=== PATIENT | male | born 1945 | race Caucasian/White ===

== ENCOUNTER → 2022-05-09 | Outpatient (CLI) | payer MEDICARE ==
--- NOTE | 2022-05-09 10:06 | CT ---
EXAMINATION TYPE: CT brain wo con DATE OF EXAM: 05/09/2022 COMPARISON: None HISTORY: Unsteady gait. CT DLP: 1108.4 mGycm Automated exposure control for dose reduction was used. FINDINGS: There is extensive soft tissue within the sphenoid sinus likely basis of chronic inflammatory changes . Mild generalized degenerative changes of the low attenuation in the white matter. No midline shift or mass effect. No acute hemorrhage. Calvarium is intact. Orbits are symmetric. Nasal septal deviation noted. Mastoid air cells clear. Catcher Filter Tip niocervical junction is maintained. Fluid-filled attenuation in the anterior right temporal fossa trinidad suring 2 x 1.2 cm compatible small arachnoid cyst. IMPRESSION: 1. Degenerative and nonspecific white matter changes most typical remote ischemia. 2. Extensive soft tissue in the sphenoid sinus extending toward the sella turcica most likely is post inflammatory and related to severe sinusitis. Recommend follow-up MRI for further evaluation as there may be a subtle defect involving the floor of the sella. 3. Fluid attenuation anterior right temporal fossa measuring 2 x 1.2 cm compatible small arachnoid cy st..
== END | disposition home or self-care (01) ==
LOC: RADCTMAIN 09:19
PROVIDERS: ATTEND Psychiatry & Neurology Neurology
DX: R90.82 White matter disease, unspecified (principal); R26.89 Other abnormalities of gait and mobility
CPT/HCPCS: 70450

== ENCOUNTER → 2022-10-29 | Outpatient (CLI) | payer MEDICARE ==
[2022-10-29 12:25] LABS: African American GFR (CKD) >90 (>60 ml/min/1.73 sqM); Blood Urea Nitrogen 17 mg/dL (9-20); Non-African American GFR(CKD) 85 (>60 ml/min/1.73 sqM)
--- NOTE | 2022-10-29 18:01 | CT ---
EXAMINATION TYPE: CT abdomen pelvis w con DATE OF EXAM: 10/29/2022 COMPARISON: None INDICATION: Constipation x3 months DLP: 891 mGycm, Automated exposure control for dose reduction was used. CONTRAST: 100 mL of Isovue 300. Study performed with Oral Contrast TECHNIQUE: Axial images were obtained from above the diaphragm to the pubic rami in the axial plane a t 5 mm thick sections. Reconstructed images are reviewed on the computer in the coronal plane. FINDINGS: Limited CT sections are obtained the lung bases. There is small hiatal hernia present.. CT ABDOMEN: Liver: r there is an ill-defined hypodensity within the lateral right lower lobe liver measuring 1.3 cm. This appears to be partially filled during the delayed images. Hemangioma is favored. This howeve r is not diagnostic of a hemangioma. Correlation with ultrasound may be useful. Spleen: Normal Pancreas: Normal Adrenal glands: The adrenal glands are normal. Gallbladder: Surgically absent Kidneys: No masses are evident. No hydronephrosis is present. There is a 2.5 cm cyst upper pole rig ht kidney. Peripelvic cyst may be present on the left kidney measuring 3.3 cm. Aorta: Vascular calcification is within the aorta. Inferior vena cava: Normal. CT PELVIS: Loops of bowel within the abdomen and pelvis are normal. There are loops of bowel which are incom pletely distended or lack oral contrast limiting their evaluation. Small fecal boluses of the rectum. Scattered diverticuli within the sigmoid colon. Appendix: Normal as visualized. Urinary bladder: Decompressed. No obvious abnormality. Genitourinary structures: Prostate is prominent. Calcification is present. Osseous structures: No suspicious lytic or sclerotic lesions. Scoliosis present. Degenerative disc ch anges are within the lumbar spine. IMPRESSIONS: 1. Small hiatal hernia. 2. Renal cysts. 3. Scattered fecal debris. No suspicious changes suggest obstruction is evident. Significant fecal re tention is not evident.
== END | disposition home or self-care (01) ==
LOC: RADCTMAIN 11:18
PROVIDERS: ATTEND Family Medicine
DX: N28.1 Cyst of kidney, acquired (principal); K44.9 Diaphragmatic hernia without obstruction or gangrene; R63.4 Abnormal weight loss; R19.4 Change in bowel habit
CPT/HCPCS: 82565; 84520; 74177; 36415; Q9967

== ENCOUNTER 2023-06-10 14:22 | Observation (INO) | payer MEDICARE ==
[2023-06-10] MEDS ORDERED: HYDROmorphone 0.5 MG/0.5 ML SYRINGE IVP STA (14:50)
[2023-06-10] MEDS ORDERED: ONDANSETRON 4 MG/2 ML VIAL IVP STA (14:50)
--- NOTE | 2023-06-10 14:54 | ED ---
Fall HPI - General Chief Complaint: Fall Stated Complaint: shoulder pain Time Seen by Provider: 06/10/23 14:39 Source: patient, EMS, RN notes reviewed Mode of arrival: EMS - History of Present Illness Initial Comments: Patient is an 78-year-old male presented ER via EMS with chief complaint of left shoulder pain. Patient was seen at [facility] on [id number] for a fall. Patient states he was stepping up onto a curb and tripped landing on his left shoulder and hitting his head. CT at that time was negative. Left shoulder x- ray showed a proximal humerus fracture. Patient is scheduled to see Dr. Nogueira tomorrow. Patient is presenting to the ER due to pain. Patient received 15 of IV Toradol and route. Patient states his pain is still at a 9 out of 10. Patient reports that his hand is numb. Denies any elbow pain. Denies any blood thinner use, headache, double blurry vision, nausea vomiting. - Related Data Home Medications Medication Instructions Recorded Confirmed ALPRAZolam [Xanax] 0.25 mg PO HS 06/10/23 06/10/23 Atorvastatin [Lipitor] 10 mg PO DAILY 06/10/23 06/10/23 Baclofen 10 mg PO HS 06/10/23 06/10/23 Benazepril/Hydrochlorothiazide 1 tab PO DAILY 06/10/23 06/10/23 [Benazepril-Hctz 20-25 mg Tab] Escitalopram [Lexapro] 10 mg PO DAILY 06/10/23 06/10/23 Esomeprazole Magnesium [NexIUM 20 mg PO DAILY 06/10/23 06/10/23 24Hr] HYDROcodone/APAP 5-325MG [Sturgeon 1 tab PO Q6H PRN 06/10/23 06/10/23 5-325] Levothyroxine Sodium [Synthroid] 125 mcg PO DAILY 06/10/23 06/10/23 Magnesium Oxide [Magox 400] 400 mg PO DAILY 06/10/23 06/10/23 Meloxicam [Mobic] 7.5 mg PO DAILY 06/10/23 06/10/23 Multivitamins, Thera [Multivitamin 1 tab PO DAILY 06/10/23 06/10/23 (formulary)] Pioglitazone [Actos] 15 mg PO DAILY 06/10/23 06/10/23 atenoloL [Tenormin] 25 mg PO DAILY 06/10/23 06/10/23 glipiZIDE [glipiZIDE ER] 2.5 mg PO DAILY 06/10/23 06/10/23 Allergies Allergy/AdvReac Type Severity Reaction Status Date / Time No Known Allergies Allergy Verified 06/10/23 17:01 Review of Systems ROS Statement: Those systems with pertinent positive or pertinent negative responses have been documented in the HPI. ROS Other: All systems not noted in ROS Statement are negative. Past Medical History Past Medical History: Hyperlipidemia, Hypertension, Thyroid Disorder History of Any Multi-Drug Resistant Organisms: None Reported Past Surgical History: Cholecystectomy, Orthopedic Surgery Additional Past Surgical History / Comment(s): Thyroid removed Past Psychological History: No Psychological Hx Reported Smoking Status: Former smoker Past Alcohol Use History: Rare Past Drug Use History: None Reported General Exam Limitations: no limitations General appearance: alert, in no apparent distress Head exam: Present: atraumatic, normocephalic, normal inspection Eye exam: Present: normal appearance, PERRL, EOMI. Absent: scleral icterus, conjunctival injection, periorbital swelling Pupils: Present: normal accommodation Neck exam: Present: normal inspection. Absent: tenderness, meningismus, lymphadenopathy Respiratory exam: Present: normal lung sounds bilaterally. Absent: respiratory distress, wheezes, rales, rhonchi, stridor Cardiovascular Exam: Present: regular rate, normal rhythm, normal heart sounds. Absent: systolic murmur, diastolic murmur, rubs, gallop, clicks Extremities exam: Present: other (left shoudler is in sling. 2+ left radial pulse. Decreased flooring professional strength on left compared to right. There is tenderness to humeral head. yellow discoloration noted in left armpit) Neurological exam: Present: alert, oriented X3, CN II-XII intact Psychiatric exam: Present: normal affect, normal mood Skin exam: Present: warm, dry, intact, normal color. Absent: rash Course Vital Signs 06/10/23 06/10/23 14:34 17:10 Temperature 98.0 F Pulse Rate 58 L 56 L Respiratory 18 18 Rate Blood Pressure 155/85 131/80 O2 Sat by Pulse 99 98 Oximetry Medical Decision Making - Medical Decision Making Was pt. sent in by a medical professional or institution (, PA, SENIOR NUCLEAR MEDICINE TECHNOLOGIST, urgent care, hospital, or retirement...) When possible be specific @ -No Did you speak to anyone other than the patient for history (EMS, parent, family, police, friend...)? What history was obtained from this source @ -Yes, Did you review nursing and triage notes (agree or disagree)? Why? @ -I reviewed and agree with nursing and triage notes Were old charts reviewed (outside hosp., previous admission, EMS record, old EKG, old radiological studies, urgent care reports/EKG's, retirement records)? Report findings @ -Yes, I reviewed charts for 06/08/23 at [facility]. Which showed negative CT brain/cspine for acute intracranial process. Left shoulder xray showed a fracture. Differential Diagnosis (chest pain, altered mental status, abdominal pain women, abdominal pain men, vaginal bleeding, weakness, fever, dyspnea, syncope, headache, dizziness, GI bleed, back pain, seizure, CVA, palpatations, mental health, musculoskeletal)? @ -Differential Musculoskeletal: Muscular strain, contusion, ligament sprain, fracture, arthritis, septic arthritis, bursitis, cellulitis, muscle spasm, nerve compression, DVT, arterial occlusion, herpes zoster, electrolyte abnormality, tumor.... This is not meant to be in all inclusive list EKG interpreted by me (3pts min.). @ -None X-rays interpreted by me (1pt min.). @ -X-ray of left shoulder a 2 part fracture proximal left humerus with disp laced surgical neck component. Chest x-ray was also completed which shows COPD and possible pulmonary nodule in the right midlung. CT interpreted by me (1pt min.). @ -None done U/S interpreted by me (1pt. min.). @ -None done What testing was considered but not performed or refused? (CT, X-rays, U/S, lab s)? Why? @ -None What meds were considered but not given or refused? Why? @ -None Did you discuss the management of the patient with other professionals (professionals i.e. , PA, SENIOR NUCLEAR MEDICINE TECHNOLOGIST, lab, RT, psych nurse, high school social science teacher, bog cutter, teacher, security control room officer, case fitter)? Give summary @ -Yes, I spoke with Giorgio from . He spoke with Dr. Nogueira and advised admission for pain control and orthopedic consult tomorrow. I also spoke with Dr. Bonner for medical admission, who accepted patient. Was smoking cessation discussed for >3mins.? @ -No Was critical care preformed (if so, how long)? @ -No Were there social determinants of health that impacted care today? How? (Homelessness, low income, unemployed, alcoholism, drug addiction, transportation, low edu. Level, literacy, decrease access to med. care, longterm, r ehab)? @ -No Was there de-escalation of care discussed even if they declined (Discuss DNR or withdrawal of care, Hospice)? DNR status @ -No What co-morbidities impacted this encounter? (DM, HTN, Smoking, COPD, CAD, Cancer, CVA, ARF, Chemo, Hep., AIDS, mental health diagnosis, sleep apnea, morbid obesity)? @ -Hypertension, hyperlipidemia, thyroid disorder Was patient admitted / discharged? Hospital course, mention meds given and route, prescriptions, significant lab abnormalities, going to OR and other pertinent info. @ -Admitted. Patient is an 78-year-old male presenting to the ER with a chief complaint of left shoulder pain after fall. Patient was previously seen at [facility] after fall on 06/08/23. CT brain was negative at that time. X- ray of left shoulder showed a humeral neck fracture. He was discharged for orthopedic follow-up. Patient presented to the ER today from PCP with complaint of uncontrolled pain. Upon examination, patient's vital signs are stable. Physical exam was significant for a noticeable deformity to shoulder with bruising present patient was also wearing a sling. Patient was neurovascularly intact. Patient was reporting his pain was 9 out of 10. Patient received IV 0.5 Dilaudid with improvement of pain. I spoke with Giorgio from who advised admission for pain control and with an orthopedic consult to Dr. Nogueira tomorrow. X-ray of left shoulder a 2 part fracture proximal left humerus with displaced surgical neck component. Chest x-ray was also completed which shows COPD and possible pulmonary nodule in the right midlung. Labs obtained in the ER were significant for Hgb 12.0 and Na of 131. Patient was started on maintenance fluids. I spoke with Dr. Bonner from [facility] who accepted medical admission. I discussed lab results and imaging with patient. Patient agreed to admission. Patient will be admitted for further care and orthopedic consult. Patient expressed understanding and agreement with care plan. Undiagnosed new problem with uncertain prognosis? @ -No Drug Therapy requiring intensive monitoring for toxicity (Heparin, Nitro, Insulin, Cardizem)? @ -No Were any procedures done? @ -No Diagnosis/symptom? @ -Left humeral neck fracture Acute, or Chronic, or Acute on Chronic? @ -Acute Uncomplicated (without systemic symptoms) or Complicated (systemic symptoms)? @ -Uncomplicated Side effects of treatment? @ -No Exacerbation, Progression, or Severe Exacerbation? @ -No Poses a threat to life or bodily function? How? (Chest pain, [place], [place], pneumonia, PE, COPD, DKA, ARF, appy, cholecystitis, CVA, Diverticulitis, Homicidal, Suicidal, threat to staff... and all critical care pts) @ -No - Lab Data Result diagrams: 06/10/23 16:06 06/10/23 16:06 - Radiology Data Radiology results: report reviewed, image reviewed Disposition Clinical Impression: Humeral fracture Disposition: ADMITTED IP TO [facility] Condition: Stable Time of Disposition: 18:38
--- NOTE | 2023-06-10 15:52 | XR ---
EXAMINATION TYPE: XR chest 1V, XR shoulder limited 2 views LT DATE OF EXAM: 06/10/2023 COMPARISON: NONE HISTORY: 78-year-old male pain after falling FINDINGS: Chest: Heart borderline in size. Mild hyperinflation. Either superimposition shadow or subtle pulmonary nodu le in the right midlung. Otherwise, no consolidation or pleural effusion. Left shoulder: There is a displaced two-part surgical neck fracture of the proximal humerus. There is counter clockw ise and posterior rotation of approximately 45 degrees as well as jai medial displacement and anter ior apex angulation. Moderate degenerative changes AC joint. Somewhat rounded contour of the greater tuberosity may be projectional or could reflect chronic rotator cuff tear. In addition, possible 1.5 cm calcific focus above the greater tuberosity. Prominent overlying soft tissue swelling. IMPRESSION: 1. Chest: COPD. Either summation artifact or a pulmonary nodule in the right midlung. Outpatient CT f ollow-up to further evaluate. No definite acute process. 2. Left shoulder: 2 part fracture proximal left humerus with displaced surgical neck component. Possi ble concurrent calcific tendinitis of the rotator cuff. Note that the greater tuberosity has a somewh at rounded contour. This may be projectional. If it is real, rounding of the contour can be seen with a chronic full-thickness rotator cuff tear.
[2023-06-10 16:21] LABS: HCT 35.5 % (39.0-53.0); MCH 30.9 pg (25.0-35.0); MCHC 33.9 g/dL (31.0-37.0); MCV 91.1 fL (80.0-100.0); Mean Platelet Volume 7.6; Platelet Count 258 k/uL (150-450); RBC 3.89 m/uL (4.30-5.90); RDW 12.5 % (11.5-15.5); WBC 11.1 k/uL (3.8-10.6)
[2023-06-10 16:39] LABS: ALT 17 U/L (4-49); AST 26 U/L (17-59); African American GFR (CKD) >90 (>60 ml/min/1.73 sqM); Albumin 3.1 g/dL (3.5-5.0); Alkaline Phosphatase 52 U/L (38-126); Anion Gap 7 mmol/L; Blood Urea Nitrogen 17 mg/dL (9-20); Calcium 8.4 mg/dL (8.4-10.2); Carbon Dioxide 30 mmol/L (22-30); Chloride 94 mmol/L (98-107); Glucose 113 mg/dL (74-99); Non-African American GFR(CKD) >90 (>60 ml/min/1.73 sqM); Potassium 3.5 mmol/L (3.5-5.1); Sodium 131 mmol/L (137-145); Total Bilirubin 0.6 mg/dL (0.2-1.3); Total Protein 5.5 g/dL (6.3-8.2)
[2023-06-10] MEDS ORDERED: ONDANSETRON 4 MG/2 ML VIAL IVP PRN (17:42)
[2023-06-10] MEDS ORDERED: NALOXONE 0.4 MG/ML 1 ML VIAL IV PRN (17:42)
[2023-06-10] MEDS: SODIUM CHLORIDE 0.9% 1,000 ML IV SCH (18:55)
[2023-06-10] MEDS: HYDROmorphone 2 MG TAB PO PRN ×2 (19:12→23:11)
[2023-06-10] MEDS ORDERED: ALPRAZolam 0.25 MG TAB PO PRN (22:58)
[2023-06-10] MEDS: BACLOFEN 10 MG TAB PO SCH (23:12)
[2023-06-11] MEDS ORDERED: PROMETHAZINE 25 MG TAB PO PRN
[2023-06-11] MEDS: HYDROmorphone 2 MG TAB PO PRN ×2 (04:13→08:23)
[2023-06-11 04:31] LABS: Appearance,Urine Clear (Clear); Color,Urine Yellow; Glucose,Urine (UA) Negative (Negative); PH, Urine 6.5 (5.0-8.0); Protein,Urine Negative (Negative); Specific Gravity,Urine 1.015 (1.001-1.035)
[2023-06-11 04:32] LABS: Bilirubin,Urine Negative (Negative); Blood,Urine Negative (Negative); Ketones,Urine Trace (Negative); Leukocyte Esterase,Urine Negative (Negative); Nitrite,Urine Negative (Negative); Urobilinogen,Urine <2.0 mg/dL (<2.0)
[2023-06-11] MEDS: HYDROcodone/APAP 5-325MG 1 EACH TAB PO PRN ×2 (06:04→12:13)
[2023-06-11] MEDS: LEVOTHYROXINE 125 MCG TAB PO SCH (06:04)
[2023-06-11] MEDS: ESCITALOPRAM 10 MG TAB PO SCH (08:24)
[2023-06-11] MEDS: MULTIVITAMINS, THERA 1 EACH TAB PO SCH (08:24)
[2023-06-11] MEDS: FAMOTIDINE 20 MG/2 ML VIAL IV SCH ×2 (08:24→20:32)
[2023-06-11] MEDS: MAGNESIUM OXIDE 400 MG TAB PO SCH (08:24)
[2023-06-11] MEDS: atenoloL 25 MG TAB PO SCH (08:24)
[2023-06-11] MEDS: SODIUM CHLORIDE 0.9% 1,000 ML IV SCH (08:24)
[2023-06-11] MEDS: ATORVASTATIN 10 MG TAB PO SCH (08:24)
[2023-06-11 08:38] LABS: Blood Urea Nitrogen 14.4 mg/dL (9.0-27.0); Calcium 8.8 mg/dL (8.7-10.3); Carbon Dioxide 26.8 mmol/L (21.6-31.8); Chloride 95 mmol/L (96-109); Glucose 124 mg/dL (70-110); Potassium 3.5 mmol/L (3.5-5.5); Sodium 134 mmol/L (135-145)
[2023-06-11 08:42] LABS: HGB 12.5 g/dL (13.0-17.0); MCH 30.3 pg (27.0-32.0); MCHC 33.8 g/dL (32.0-37.0); MCV 89.6 FL (80.0-97.0); NRBC Per 100 WBC 0 X 10*3/uL (0.00-0.01); Platelet Count 279 X 10*3/uL (140-440); RBC 4.13 X 10*6/uL (4.40-5.60); RDW 13.1 % (11.5-14.5); WBC 9.12 X 10*3/uL (4.50-10.00)
[2023-06-11 08:43] LABS: Basophils # (A) 0.01 X 10*3/uL (0.00-0.10); Basophils % (A) 0.1 %; Eosinophils # (A) 0.11 X 10*3/uL (0.04-0.35); Eosinophils % (A) 1.2 %; Lymphocytes # (A) 1.16 X 10*3/uL (0.90-5.00); Lymphocytes % (A) 12.7 %; Monocytes # (A) 0.67 X 10*3/uL (0.20-1.00); Monocytes % (A) 7.3 %; Neutrophils # (A) 7.14 X 10*3/uL (1.80-7.70); Neutrophils % (A) 78.4 %
[2023-06-11] MEDS: PIOGLITAZONE 15 MG TAB PO SCH (09:11)
[2023-06-11] MEDS: HEPARIN SODIUM,PORCINE 5,000 UNIT/ML 1 ML VIAL SQ SCH ×3 (09:11→20:32)
[2023-06-11] MEDS ORDERED: HYDROcodone/APAP 7.5-325MG 1 EACH TAB PO PRN (12:23)
--- NOTE | 2023-06-11 12:25 | P.CNOR ---
History of Present Illness - [facility] Consult date: 06/11/23 History of present illness: The patient is an 78-year-old male who presented to the emergency department yesterday with uncontrolled pain and debility from a left proximal humerus fracture. He states he fell on 06/07/2023 and what to the emergency department at [facility]. He was seen in our office by Marisol Tarango PA-C and he was referred to Dr. Nogueira for surgical intervention. However, patient had increasing difficulty at home with ambulation and taking care of himself. The patient also has had uncontrolled pain in the left shoulder with Orestes 5. It was decided yesterday that he should come to the hospital for rehabilitation placement. Today, the patient states that his left shoulder pain is severe and his pain increases when he is up ambulating to the bathroom. He is experiencing numbness in the left hand and is unable to move the wrist and fingers well. Review of Systems Constitutional: Denies chills, Denies fatigue, Denies fever Cardiovascular: Denies chest pain, Denies shortness of breath Respiratory: Denies cough Gastrointestinal: Denies diarrhea, Denies nausea, Denies vomiting Musculoskeletal: left: shoulder pain, shoulder stiffness, shoulder swelling Past Medical History Past Medical History: Hyperlipidemia, Hypertension, Thyroid Disorder History of Any Multi-Drug Resistant Organisms: None Reported Past Surgical History: Cholecystectomy, Orthopedic Surgery Additional Past Surgical History / Comment(s): Thyroid removed Past Anesthesia/Blood Transfusion Reactions: No Reported Reaction Past Psychological History: No Psychological Hx Reported Smoking Status: Former smoker Past Alcohol Use History: Rare Past Drug Use History: None Reported - Past Family History Mother Family Medical History: Diabetes Mellitus Father Family Medical History: Myocardial Infarction ([place]) Medications and Allergies Home Medications Medication Instructions Recorded Confirmed Type ALPRAZolam [Xanax] 0.25 mg PO HS 06/10/23 06/10/23 History Atorvastatin [Lipitor] 10 mg PO DAILY 06/10/23 06/10/23 History Baclofen 10 mg PO HS 06/10/23 06/10/23 History Benazepril/Hydrochlorothiazide 1 tab PO DAILY 06/10/23 06/10/23 History [Benazepril-Hctz 20-25 mg Tab] Escitalopram [Lexapro] 10 mg PO DAILY 06/10/23 06/10/23 History Esomeprazole Magnesium [NexIUM 20 mg PO DAILY 06/10/23 06/10/23 History 24Hr] HYDROcodone/APAP 5-325MG [Orestes 1 tab PO Q6H PRN 06/10/23 06/10/23 History 5-325] Levothyroxine Sodium [Synthroid] 125 mcg PO DAILY 06/10/23 06/10/23 History Magnesium Oxide [Magox 400] 400 mg PO DAILY 06/10/23 06/10/23 History Meloxicam [Mobic] 7.5 mg PO DAILY 06/10/23 06/10/23 History Multivitamins, Thera [Multivitamin 1 tab PO DAILY 06/10/23 06/10/23 History (formulary)] Pioglitazone [Actos] 15 mg PO DAILY 06/10/23 06/10/23 History atenoloL [Tenormin] 25 mg PO DAILY 06/10/23 06/10/23 History glipiZIDE [glipiZIDE ER] 2.5 mg PO DAILY 06/10/23 06/10/23 History Allergies Allergy/AdvReac Type Severity Reaction Status Date / Time No Known Allergies Allergy Verified 06/10/23 17:01 Physical Examination the patient is an 78-year-old male in no acute distress. He is alert and oriented 3. Exam of the left upper extremity reveals bruising to the upper arm. Arm sling in place. The arm is soft and nontender. There is point tenderness over the proximal humerus. He does have weak wrist extension and finger extension. There is numbness to the entire hand. No numbness to the forearm. Circulatory status is intact. Results X-rays of the left shoulder reveals a displaced proximal humerus fracture with dislocation of the humeral head. Calcific tendonitis present. - Labs Labs: Abnormal Lab Results - Last 24 Hours (Table) 06/10/23 06/10/23 06/11/23 Range/Units 16:06 16:06 05:44 WBC 11.1 H (3.8-10.6) k/uL RBC 3.89 L 4.13 L (4.30-5.90) m/uL Hgb 12.0 L 12.5 L (13.0-17.5) gm/dL Hct 35.5 L 37.0 L (39.0-53.0) % Sodium 131 L (137-145) mmol/L Chloride 94 L (98-107) mmol/L Anion Gap (4.00-12.00) mmol/L Creatinine 0.62 L (0.66-1.25) mg/dL BUN/Creatinine Ratio (12.00-20.00) Ratio Glucose 113 H (74-99) mg/dL Total Protein 5.5 L (6.3-8.2) g/dL Albumin 3.1 L (3.5-5.0) g/dL 06/11/23 Range/Units 05:44 WBC (3.8-10.6) k/uL RBC (4.30-5.90) m/uL Hgb (13.0-17.5) gm/dL Hct (39.0-53.0) % Sodium 134 L (137-145) mmol/L Chloride 95 L (98-107) mmol/L Anion Gap 12.20 H (4.00-12.00) mmol/L Creatinine (0.66-1.25) mg/dL BUN/Creatinine Ratio 24.00 H (12.00-20.00) Ratio Glucose 124 H (74-99) mg/dL Total Protein (6.3-8.2) g/dL Albumin (3.5-5.0) g/dL H & H 06/10/23 06/11/23 Range/Units 16:06 05:44 Hgb 12.0 L 12.5 L (13.0-17.5) gm/dL Hct 35.5 L 37.0 L (39.0-53.0) % Result Diagrams: 06/11/23 05:44 06/11/23 05:44 Assessment and Plan (1) Closed fracture of left proximal humerus Current Visit: Yes Status: Acute Code(s): S42.202A - UNSP FRACTURE OF UPPER END OF LEFT HUMERUS, INIT FOR CLOS FX SNOMED Code(s): 39964651 (2) Left shoulder pain Current Visit: Yes Status: Acute Code(s): M25.512 - PAIN IN LEFT SHOULDER SNOMED Code(s): 7040122789 Plan: The clinical and x-ray findings were discussed with the patient and his girlfriend. Treatment options were discussed at length including nonoperative and operative treatment. With the type of fracture and his activity level, the best option for him would be a reverse shoulder arthroplasty. He is scheduled for a left reverse shoulder arthroplasty on 06/18/2023. It was discussed at length about the limitations he will probably have after surgery in regards to the motion of the shoulder. We will increase pain medication to Orestes 7.5mg and add Flexeril. He may continue with Dilaudid if needed until pain is controlled better with oral meds. PT and OT have been ordered for evaluation for skilled rehab placement. We recommend the patient go to skilled rehab if he is unable to take care of himself at home with some assistance from his family before surgery and will likely require rehab after surgery until able to manage himself at home. He is orthopedically stable for discharge to skilled rehab if approved and when his pain is controlled on oral meds. Pre-op labs and EKG are ordered or completed. We request clearance by internal medicine for surgery next week.
[2023-06-11] MEDS: CYCLOBENZAPRINE 10 MG TAB PO PRN (12:53)
[2023-06-11 13:02] VITALS: BMI 23.6
--- NOTE | 2023-06-11 14:18 | P.HPIM ---
History of Present Illness H&P Date: 06/11/23 History of present illness; patient is a 78-year-old gentleman with past medical history significant for hypertension, hypothyroidism, diabetes mellitus presented to the ER for left shoulder pain. Patient was recently seen at [facility] after a fall. According to patient, he was stepping up on curb when he tripped and fell on his left shoulder. Patient was worked up at [facility] and was found to have proximal humerus fracture. Patient was scheduled to see orthopedic outpatient but states that his pain was so severe that he was unable to tolerate it and decided to come back to the ER Initial lab work done in the ER showed WBC 11.1, hemoglobin 12, platelet count 258, sodium 131, potassium 3.5, BUN 17, creatinine 0.62, glucose 113 UA negative for infection Chest x-ray done in the ER no definite acute process X-ray left shoulder showed fracture of proximal left humerus with displaced surgical neck competent. Patient admitted to internal medicine service REVIEW OF SYSTEMS: CONSTITUTIONAL: No fever, no malaise, no fatigue. HEENT: No recent visual problems or hearing problems. Denied any sore throat. CARDIOVASCULAR: No chest pain, orthopnea, PND, no palpitations, no syncope. PULMONARY: No shortness of breath, no cough, no hemoptysis. GASTROINTESTINAL: No diarrhea, no nausea, no vomiting, no abdominal pain. NEUROLOGICAL: No headaches, no weakness, no numbness. HEMATOLOGICAL: Denies any bleeding or petechiae. GENITOURINARY: Denies any burning micturition, frequency, or urgency. MUSCULOSKELETAL/RHEUMATOLOGICAL: Left shoulder pain ENDOCRINE: Denies any polyuria or polydipsia. The rest of the 14-point review of systems is negative. PHYSICAL EXAMINATION: GENERAL: The patient is alert and oriented x3, not in any acute distress. Well developed, well nourished. HEENT: Pupils are round and equally reacting to light. EOMI. No scleral icterus. No conjunctival pallor. Normocephalic, atraumatic. No pharyngeal erythema. No thyromegaly. CARDIOVASCULAR: S1 and S2 present. No murmurs, rubs, or gallops. PULMONARY: Chest is clear to auscultation, no wheezing or crackles. ABDOMEN: Soft, nontender, nondistended, normoactive bowel sounds. No palpable organomegaly. MUSCULOSKELETAL: Left upper extremity sling seen EXTREMITIES: No cyanosis, clubbing, or pedal edema. NEUROLOGICAL: Gross neurological examination did not reveal any focal deficits. SKIN: No rashes. Assessment and plan Left humerus fracture Fall Hypertension [id number] diabetes mellitus Hypothyroidism Monitor vital signs Monitor CBC Monitor CMP Follow-up precautions Continue Synthroid Continue IV fluids Continue pain control with IV Dilaudid 1 mg every 3 hourly and [place] Consult orthopedics Resume home meds Ordered bowel regimen PT and OT consulted Labs and medication were reviewed.. Continue same treatment. Continue with s ymptomatic treatment. Resume home medication. Monitor labs and vitals. DVT and GI prophylaxis. Further recommendations as per clinical course of the patient Dictation was produced using [employer] dictation software. please excuse any grammatical, word or spelling errors. Past Medical History Past Medical History: Hyperlipidemia, Hypertension, Thyroid Disorder History of Any Multi-Drug Resistant Organisms: None Reported Past Surgical History: Cholecystectomy, Orthopedic Surgery Additional Past Surgical History / Comment(s): Thyroid removed Past Anesthesia/Blood Transfusion Reactions: No Reported Reaction Past Psychological History: No Psychological Hx Reported Smoking Status: Former smoker Past Alcohol Use History: Rare Past Drug Use History: None Reported - Past Family History Mother Family Medical History: Diabetes Mellitus Father Family Medical History: Myocardial Infarction ([place]) Medications and Allergies Home Medications Medication Instructions Recorded Confirmed Type ALPRAZolam [Xanax] 0.25 mg PO HS 06/10/23 06/10/23 History Atorvastatin [Lipitor] 10 mg PO DAILY 06/10/23 06/10/23 History Baclofen 10 mg PO HS 06/10/23 06/10/23 History Benazepril/Hydrochlorothiazide 1 tab PO DAILY 06/10/23 06/10/23 History [Benazepril-Hctz 20-25 mg Tab] Escitalopram [Lexapro] 10 mg PO DAILY 06/10/23 06/10/23 History Esomeprazole Magnesium [NexIUM 20 mg PO DAILY 06/10/23 06/10/23 History 24Hr] HYDROcodone/APAP 5-325MG [[place] 1 tab PO Q6H PRN 06/10/23 06/10/23 History 5-325] Levothyroxine Sodium [Synthroid] 125 mcg PO DAILY 06/10/23 06/10/23 History Magnesium Oxide [Magox 400] 400 mg PO DAILY 06/10/23 06/10/23 History Meloxicam [Mobic] 7.5 mg PO DAILY 06/10/23 06/10/23 History Multivitamins, Thera [Multivitamin 1 tab PO DAILY 06/10/23 06/10/23 History (formulary)] Pioglitazone [Actos] 15 mg PO DAILY 06/10/23 06/10/23 History atenoloL [Tenormin] 25 mg PO DAILY 06/10/23 06/10/23 History glipiZIDE [glipiZIDE ER] 2.5 mg PO DAILY 06/10/23 06/10/23 History Allergies Allergy/AdvReac Type Severity Reaction Status Date / Time No Known Allergies Allergy Verified 06/10/23 17:01 Physical Exam Vitals: Vital Signs Temp Pulse Pulse Pulse Resp BP BP 06/11/23 07:15 97.5 F L 60 20 152/83 06/11/23 02:19 97.5 F L 56 L 16 125/76 06/10/23 21:15 97.9 F 57 L 15 137/88 06/10/23 19:13 58 L 18 144/90 06/10/23 17:10 56 L 18 131/80 06/10/23 14:34 98.0 F 58 L 18 155/85 Pulse Ox 06/11/23 07:15 98 06/11/23 02:19 94 L 06/10/23 21:15 98 06/10/23 19:13 94 L 06/10/23 17:10 98 06/10/23 14:34 99 Intake and Output 06/10/23 06/11/23 06/11/23 22:59 06:59 14:59 Intake Total 118 Balance 118 Intake: Oral 118 Other: Voiding Method Toilet Toilet Toilet # Voids 1 2 Weight 74.843 kg 74.843 kg Results CBC & Chem 7: 06/11/23 05:44 06/11/23 05:44 Labs: Abnormal Lab Results - Last 24 Hours (Table) 06/10/23 06/10/23 06/11/23 Range/Units 16:06 16:06 05:44 WBC 11.1 H (3.8-10.6) k/uL RBC 3.89 L 4.13 L (4.30-5.90) m/uL Hgb 12.0 L 12.5 L (13.0-17.5) gm/dL Hct 35.5 L 37.0 L (39.0-53.0) % Sodium 131 L (137-145) mmol/L Chloride 94 L (98-107) mmol/L Anion Gap (4.00-12.00) mmol/L Creatinine 0.62 L (0.66-1.25) mg/dL BUN/Creatinine Ratio (12.00-20.00) Ratio Glucose 113 H (74-99) mg/dL Total Protein 5.5 L (6.3-8.2) g/dL Albumin 3.1 L (3.5-5.0) g/dL 06/11/23 Range/Units 05:44 WBC (3.8-10.6) k/uL RBC (4.30-5.90) m/uL Hgb (13.0-17.5) gm/dL Hct (39.0-53.0) % Sodium 134 L (137-145) mmol/L Chloride 95 L (98-107) mmol/L Anion Gap 12.20 H (4.00-12.00) mmol/L Creatinine (0.66-1.25) mg/dL BUN/Creatinine Ratio 24.00 H (12.00-20.00) Ratio Glucose 124 H (74-99) mg/dL Total Protein (6.3-8.2) g/dL Albumin (3.5-5.0) g/dL Thrombosis Risk Factor Assmnt - Choose All That Apply Any of the Below Risk Factors Present?: Yes Each Factor Represents 1 point: Minor surgery planned Other Risk Factors: No Thrombosis Risk Factor Assessment Total Risk Factor Score: 1 Thrombosis Risk Factor Assessment Level: Low Risk
[2023-06-11] MEDS: HYDROcodone/APAP 7.5-325MG 1 EACH TAB PO PRN ×2 (15:21→21:27)
[2023-06-11] MEDS: polyethylene glycoL 3350 17 GM POWD.PACK PO SCH (15:22)
[2023-06-11] MEDS: BACLOFEN 10 MG TAB PO SCH (20:32)
[2023-06-11] MEDS: DOCUSATE 100 MG CAP PO SCH (20:32)
[2023-06-12] MEDS: CYCLOBENZAPRINE 10 MG TAB PO PRN ×2 (01:20→09:22)
[2023-06-12] MEDS: HYDROmorphone 2 MG TAB PO PRN (01:20)
[2023-06-12] MEDS: HYDROcodone/APAP 7.5-325MG 1 EACH TAB PO PRN ×2 (04:00→11:11)
[2023-06-12] MEDS: LEVOTHYROXINE 125 MCG TAB PO SCH (06:15)
[2023-06-12 06:40] LABS: INR 0.9 (<1.2); Partial Thromboplastin Time 23.7 sec (22.0-30.0); Prothrombin Time 10.3 sec (10.0-12.5)
--- NOTE | 2023-06-12 08:40 | P.PN ---
Subjective Progress Note Date: 06/12/23 Principal diagnosis: Left proximal humerus fracture The patient is an 78-year-old male who presented to the emergency department yesterday with uncontrolled pain and debility from a left proximal humerus fracture. He states he fell on 06/07/2023 and what to the emergency department at [facility]. He was seen in our office by Marisol Tarango PA-C and he was referred to Dr. Nogueira for surgical intervention. However, patient had increasing difficulty at home with ambulation and taking care of himself. The patient also has had uncontrolled pain in the left shoulder with [place] 5. It was decided yesterday that he should come to the hospital for rehabilitation rafael cement. Today, the patient states that his left shoulder pain is severe and his pain increases when he is up ambulating to the bathroom. He is experiencing numbness in the left hand and is unable to move the wrist and fingers well. 06/12/2023: The patient is feeling better and his pain is better controlled. No new complaints today. Objective - Vital Signs Vital signs: Vital Signs Temp 97.9 F 06/12/23 07:00 Pulse 54 L 06/12/23 07:00 Resp 12 06/12/23 07:00 BP 141/85 06/12/23 07:00 Pulse Ox 92 L 06/12/23 07:00 FiO2 Intake & Output 06/11/23 06/12/23 06/12/23 18:59 06:59 18:59 Intake Total 475 Balance 475 Weight 74.843 kg Intake: Oral 475 Other: Voiding Method Toilet Toilet # Voids 1 2 - Exam The patient is an 78-year-old male in no acute distress. He is alert and oriented 3. Exam of the left upper extremity reveals bruising to the upper arm. Arm sling in place. The arm is soft and nontender. There is point tenderness over the proximal humerus. He does have weak wrist extension and finger extension. There is numbness to the entire hand. No numbness to the forearm. Circulatory status is intact. - Labs CBC & Chem 7: 06/11/23 05:44 06/11/23 05:44 Labs: Abnormal Lab Results - Last 24 Hours (Table) 06/11/23 Range/Units 05:44 RBC 4.13 L (4.40-5.60) X 10*6/uL Hgb 12.5 L (13.0-17.0) g/dL Hct 37.0 L (39.6-50.0) % Assessment and Plan (1) Closed fracture of left proximal humerus Current Visit: Yes Status: Acute Code(s): S42.A - UNSP FRACTURE OF UPPER END OF LEFT HUMERUS, INIT FOR CLOS FX SNOMED Code(s): 92762563 (2) Left shoulder pain Current Visit: Yes Status: Acute Code(s): M25.512 - PAIN IN LEFT SHOULDER SNOMED Code(s): 6547257798 Plan: The clinical and x-ray findings were discussed with the patient. Treatment options were discussed at length including nonoperative and operative treatment. With the type of fracture and his activity level, the best option for him would be a reverse shoulder arthroplasty. He is scheduled for a left reverse shoulder arthroplasty on 06/18/2023. It was discussed at length about the limitations he will probably have after surgery in regards to the motion of the shoulder. We will increase pain medication to [place] 7.5mg and add Flexeril. He may continue with Dilaudid if needed until pain is controlled better with oral meds. PT and OT have been ordered for evaluation for skilled rehab placement. We recommend the patient go to skilled rehab if he is unable to take care of himself at home with some assistance from his family before surgery and will l ikely require rehab after surgery until able to manage himself at home. He is orthopedically stable for discharge to skilled rehab if approved and when his pain is controlled on oral meds. Pre-op labs and EKG are ordered or completed. He is complaining of constipation, Miralax and Colace are currently ordered. He will return to the hospital on 06/18/2023 for surgery.
[2023-06-12] MEDS ORDERED: lisinopriL 20 MG TAB PO SCH (09:00)
[2023-06-12] MEDS ORDERED: hydroCHLOROthiazide 25 MG TAB PO SCH (09:00)
[2023-06-12] MEDS: PIOGLITAZONE 15 MG TAB PO SCH (09:21)
[2023-06-12] MEDS: HEPARIN SODIUM,PORCINE 5,000 UNIT/ML 1 ML VIAL SQ SCH ×2 (09:21→09:29)
[2023-06-12] MEDS: FAMOTIDINE 20 MG/2 ML VIAL IV SCH (09:21)
[2023-06-12] MEDS: DOCUSATE 100 MG CAP PO SCH (09:21)
[2023-06-12] MEDS: ESCITALOPRAM 10 MG TAB PO SCH (09:22)
[2023-06-12] MEDS: atenoloL 25 MG TAB PO SCH ×2 (09:22→09:29)
[2023-06-12] MEDS: polyethylene glycoL 3350 17 GM POWD.PACK PO SCH (09:22)
[2023-06-12] MEDS: MAGNESIUM OXIDE 400 MG TAB PO SCH (09:22)
[2023-06-12] MEDS: ATORVASTATIN 10 MG TAB PO SCH (09:22)
[2023-06-12] MEDS: MULTIVITAMINS, THERA 1 EACH TAB PO SCH (09:22)
--- NOTE | 2023-06-12 13:01 | P.DS ---
Providers Date of admission: 06/10/23 15:22 Expected date of discharge: 06/12/23 Attending physician: Alfredo Bonner MD Consults: 06/10/23 17:42 Consult Physician Stat Consulting Provider: Kristi Nogueira Reason/Comments: humerus fracture Do you want consulting provider notified?: Yes, Notify in am Primary care physician: Rodriguez Ryan [facility] Course: Discharge diagnoses; Left humerus fracture Fall Hypertension [id number] diabetes mellitus Hypothyroidism Hospital course; patient is a 78-year-old gentleman with past medical history significant for hypertension, hypothyroidism, diabetes mellitus presented to the ER for left shoulder pain. Patient was recently seen at [facility] after a fall. According to patient, he was stepping up on curb when he tripped and fell on his left shoulder. Patient was worked up at [facility] and was found to have proximal humerus fracture. Patient was scheduled to see orthopedic outpatient but states that his pain was so severe that he was unable to tolerate it and decided to come back to the ER Initial lab work done in the ER showed WBC 11.1, hemoglobin 12, platelet count 258, sodium 131, potassium 3.5, BUN 17, creatinine 0.62, glucose 113 UA negative for infection Chest x-ray done in the ER no definite acute process X-ray left shoulder showed fracture of proximal left humerus with displaced surgical neck competent. Patient admitted to internal medicine service 06/12. Patient seen and examined. Pain is better controlled. Orthopedics recommended conservative management, they recommended surgery in 1 week. Patient is medically stable to undergo surgery at that time with moderate risk of complications. PT and OT recommended rehab. Being discharged to rehab in stable condition PHYSICAL EXAMINATION: The patient is alert and oriented x3, not in any acute distress. Well developed, well nourished. HEENT: Pupils are round and equally reacting to light. EOMI. No scleral icterus. No conjunctival pallor. Normocephalic, atraumatic. No pharyngeal erythema. No thyromegaly. CARDIOVASCULAR: S1 and S2 present. No murmurs, rubs, or gallops. PULMONARY: Chest is clear to auscultation, no wheezing or crackles. ABDOMEN: Soft, nontender, nondistended, normoactive bowel sounds. No palpable organomegaly. MUSCULOSKELETAL: Left upper extremity sling seen EXTREMITIES: No cyanosis, clubbing, or pedal edema. NEUROLOGICAL: Gross neurological examination did not reveal any focal deficits. SKIN: No rashes. Dictation was produced using [employer] dictation software. please excuse any grammatical, word or spelling errors. Patient Condition at Discharge: Stable Plan - Discharge Summary Discharge Rx Participant: No New Discharge Prescriptions: New HYDROcodone/APAP 7.5-325MG [[place] 7.5-325] 1 each PO Q4H PRN 3 Days #18 tab PRN Reason: Pain Control Cyclobenzaprine [Flexeril] 10 mg PO TID PRN 7 Days #21 tab PRN Reason: Muscle Spasm polyethylene glycoL 3350 [Miralax] 17 gm PO DAILY packet Continue Levothyroxine Sodium [Synthroid] 125 mcg PO DAILY Atorvastatin [Lipitor] 10 mg PO DAILY glipiZIDE [glipiZIDE ER] 2.5 mg PO DAILY Pioglitazone [Actos] 15 mg PO DAILY Meloxicam [Mobic] 7.5 mg PO DAILY Baclofen 10 mg PO HS atenoloL [Tenormin] 25 mg PO DAILY Esomeprazole Magnesium [NexIUM 24Hr] 20 mg PO DAILY Benazepril/Hydrochlorothiazide [Benazepril-Hctz 20-25 mg Tab] 1 tab PO DAILY Escitalopram [Lexapro] 10 mg PO DAILY Magnesium Oxide [Magox 400] 400 mg PO DAILY Multivitamins, Thera [Multivitamin (formulary)] 1 tab PO DAILY ALPRAZolam [Xanax] 0.25 mg PO HS 3 Days #3 tab Discontinued HYDROcodone/APAP 5-325MG [[place] 5-325] 1 tab PO Q6H PRN PRN Reason: Pain Discharge Medication List Atorvastatin [Lipitor] 10 mg PO DAILY 06/10/23 [History] Baclofen 10 mg PO HS 06/10/23 [History] Benazepril/Hydrochlorothiazide [Benazepril-Hctz 20-25 mg Tab] 1 tab PO DAILY 06/10/23 [History] Escitalopram [Lexapro] 10 mg PO DAILY 06/10/23 [History] Esomeprazole Magnesium [NexIUM 24Hr] 20 mg PO DAILY 06/10/23 [History] Levothyroxine Sodium [Synthroid] 125 mcg PO DAILY 06/10/23 [History] Magnesium Oxide [Magox 400] 400 mg PO DAILY 06/10/23 [History] Meloxicam [Mobic] 7.5 mg PO DAILY 06/10/23 [History] Multivitamins, Thera [Multivitamin (formulary)] 1 tab PO DAILY 06/10/23 [History] Pioglitazone [Actos] 15 mg PO DAILY 06/10/23 [History] atenoloL [Tenormin] 25 mg PO DAILY 06/10/23 [History] glipiZIDE [glipiZIDE ER] 2.5 mg PO DAILY 06/10/23 [History] ALPRAZolam [Xanax] 0.25 mg PO HS 3 Days #3 tab 06/12/23 [Rx] Cyclobenzaprine [Flexeril] 10 mg PO TID PRN 7 Days #21 tab 06/12/23 [Rx] HYDROcodone/APAP 7.5-325MG [[place] 7.5-325] 1 each PO Q4H PRN 3 Days #18 tab 06/12/23 [Rx] polyethylene glycoL 3350 [Miralax] 17 gm PO DAILY packet 06/12/23 [Rx] Follow up Appointment(s)/Referral(s): Rodriguez Ryan MD [Primary Care Provider] - 1-2 days Discharge Disposition: TRANSFER TO SNF/ECF
[2023-06-12 14:16] VITALS: BP 138/83; PULSE 62; RESP 16; TEMP 98
== END 2023-06-12 14:53 ==
LOC: EC 14:22 → 6NMEDSUR 15:22
PROVIDERS: ADMIT Internal Medicine; ATTEND Internal Medicine
DX: S42.212A Unspecified displaced fracture of surgical neck of left humerus, initial encounter for closed fracture (principal); W01.0XXA Fall on same level from slipping, tripping and stumbling without subsequent striking against object, initial encounter; Z79.899 Other long term (current) drug therapy; Z79.890 Hormone replacement therapy; Z79.1 Long term (current) use of non-steroidal anti-inflammatories (NSAID); Z79.84 Long term (current) use of oral hypoglycemic drugs; E78.5 Hyperlipidemia, unspecified; I10 Essential (primary) hypertension; E03.9 Hypothyroidism, unspecified; Z90.49 Acquired absence of other specified parts of digestive tract; Z87.891 Personal history of nicotine dependence; Z83.3 Family history of diabetes mellitus; Z82.49 Family history of ischemic heart disease and other diseases of the circulatory system
CPT/HCPCS: 96376 ×2; 96361; 96375 ×2; 96374; 99285; 36415; 97162; 97166; 80053; 80048; 85025; 85027; 85610; 85730; 81003; 87070; 73020; 71045; G0378 ×3; J2405; J3490 ×2; J1170

== ENCOUNTER 2023-06-18 05:49 | Observation (INO) | payer MEDICARE ==
[2023-06-16 09:53] VITALS: BMI 23.6
[~2023-06-18 05:49] MED LIST: CLINDAMYCIN 900 MG in DEXTROSE 5% IN WATER 50 ML IVPB PRN
[2023-06-18] MEDS ORDERED: TRANEXAMIC 1,000 MG/100ML-NACL 1,000 MG in SALINE 1 100ML.BAG IVPB PRN (06:00)
[2023-06-18] MEDS ORDERED: DEXAMETHASONE SOD PHOSPHATE 10 MG/ML 1 ML VIAL IV PRN (06:00)
[2023-06-18] MEDS ORDERED: ACETAMINOPHEN TAB 500 MG TAB PO PRN (06:00)
[2023-06-18] MEDS ORDERED: TRANEXAMIC 1,000 MG/100ML-NACL 1,000 MG in SALINE 1 100ML.BAG IV PRN (06:00)
[2023-06-18] MEDS ORDERED: LIDOCAINE 1% (10MG/ML) FOR IV START INTRADERMA PRN (06:13)
[2023-06-18] MEDS ORDERED: ONDANSETRON 4 MG/2 ML VIAL IVP ONE (06:13)
[2023-06-18] MEDS ORDERED: DEXAMETHASONE SOD PHOSPHATE 4 MG/ML 1 ML VIAL IV ONE (06:13)
[2023-06-18] MEDS: LACTATED RINGERS 1,000 ML IV SCH (06:30)
[2023-06-18 06:46] LABS: Glucose,Whole Blood 177 mg/dL (70-110)
[2023-06-18] MEDS ORDERED: HYDROmorphone 0.5 MG/0.5 ML SYRINGE IVP PRN ×3 (07:00→10:35)
[2023-06-18] MEDS ORDERED: MIDAZOLAM 2 MG/2 ML VIAL IV PRN (07:00)
[2023-06-18] MEDS ORDERED: LIDOCAINE 1% INJ 10MG/ML (20 ML MDV) ONE (07:31)
[2023-06-18] MEDS ORDERED: TRANEXAMIC 1,000 MG/100ML-NACL PREMIX BAG ONE (07:31)
[2023-06-18] MEDS ORDERED: SUCCINYLCHOLINE CHLORIDE 200 MG/10 ML VIAL IV ONE (07:31)
[2023-06-18] MEDS ORDERED: ePHEDrine 50 MG/ML 1 ML VIAL ONE (07:31)
[2023-06-18] MEDS ORDERED: PROPOFOL 10 MG/ML 20 ML VIAL IV ONE (07:31)
[2023-06-18] MEDS ORDERED: fentaNYL (PF) 50 MCG/ML 2 ML AMP ONE (07:31)
[2023-06-18] MEDS ORDERED: ROCURONIUM 10 MG/ML (5 ML VIAL) IV ONE (07:31)
[2023-06-18] MEDS ORDERED: ROPIVACAINE 5 MG/ML 30 ML VIAL ONE (07:31)
[2023-06-18] MEDS ORDERED: PHENYLEPHRINE-0.9% NACL SYG 1,000 MCG/10 ML SYRINGE ONE (07:31)
[2023-06-18] MEDS ORDERED: NEOSTIGMINE 1 MG/ML 10 ML VIAL ONE (07:31)
[2023-06-18] MEDS ORDERED: DEXAMETHASONE SOD PHOSPHATE 4 MG/ML 1 ML VIAL ONE (07:31)
[2023-06-18] MEDS ORDERED: GLYCOPYRROLATE 0.2 MG/ML 2 ML VIAL ONE (07:31)
[2023-06-18] MEDS ORDERED: ceFAZolin 1,000 MG in SODIUM CHLORIDE 0.9% 1,000 ML IRRIGATION ONE (08:10)
[2023-06-18] MEDS ORDERED: LACTATED RINGERS 1,000 ML IV ONE (09:22)
[2023-06-18] MEDS ORDERED: SENNOSIDES-DOCUSATE SODIUM 1 EACH TAB PO PRN (10:35)
[2023-06-18] MEDS ORDERED: HYDROcodone/APAP 7.5-325MG 1 EACH TAB PO PRN (10:38)
[2023-06-18 10:47] LABS: Glucose,Whole Blood 212 mg/dL (70-110)
--- NOTE | 2023-06-18 12:13 | XR ---
EXAMINATION TYPE: XR shoulder limited LT DATE OF EXAM: 06/18/2023 12:06 PM CLINICAL INDICATION:Male, 78 years old with history of Left RSA, assess alignment; COMPARISON: 06/10/2023. TECHNIQUE: XR shoulder limited LT; shoulder was examined in AP frontal projections. FINDINGS: Left shoulder arthroplasty. Hardware appears intact. No new acute fractures. No evidence of acute osseous pathology, joint dislocation, or soft tissue swelling. The remaining po rtions of the visualized chest are unremarkable. IMPRESSION: Post reverse left shoulder arthroplasty changes without evidence for fracture acute postop consultati on.
[2023-06-18] MEDS: CLINDAMYCIN 900 MG in DEXTROSE 5% IN WATER 50 ML IVPB SCH ×2 (16:08)
[2023-06-18] MEDS: HYDROcodone/APAP 7.5-325MG 1 EACH TAB PO PRN (16:16)
[2023-06-18 16:25] LABS: Glucose,Whole Blood 209 mg/dL (70-110)
[2023-06-18 20:20] LABS: Glucose,Whole Blood 281 mg/dL (70-110)
[2023-06-18] MEDS: INSULIN ASPART (NovoLOG) 100 UNIT/ML VIAL SQ SCH (20:58)
[2023-06-18] MEDS: ATORVASTATIN 10 MG TAB PO SCH (21:03)
[2023-06-18] MEDS: HYDROmorphone 0.5 MG/0.5 ML SYRINGE IVP PRN (21:03)
[2023-06-18] MEDS: ALPRAZolam 0.25 MG TAB PO SCH (21:03)
[2023-06-19] MEDS: CLINDAMYCIN 900 MG in DEXTROSE 5% IN WATER 50 ML IVPB SCH ×2 (00:24)
[2023-06-19] MEDS: HYDROcodone/APAP 7.5-325MG 1 EACH TAB PO PRN (01:40)
[2023-06-19] MEDS: HYDROmorphone 0.5 MG/0.5 ML SYRINGE IVP PRN ×2 (05:12→20:06)
[2023-06-19 05:55] LABS: Glucose,Whole Blood 141 mg/dL (70-110)
[2023-06-19] MEDS: INSULIN ASPART (NovoLOG) 100 UNIT/ML VIAL SQ SCH ×4 (05:55→20:52)
[2023-06-19] MEDS: PANTOPRAZOLE 40 MG TABLET PO SCH (06:31)
[2023-06-19] MEDS: LEVOTHYROXINE 125 MCG TAB PO SCH (06:31)
[2023-06-19] MEDS: MULTIVITAMINS, THERA 1 EACH TAB PO SCH (08:22)
[2023-06-19] MEDS: polyethylene glycoL 3350 17 GM POWD.PACK PO SCH (08:23)
[2023-06-19] MEDS: PIOGLITAZONE 15 MG TAB PO SCH (08:23)
[2023-06-19] MEDS: atenoloL 25 MG TAB PO SCH (08:23)
[2023-06-19] MEDS: MAGNESIUM OXIDE 400 MG TAB PO SCH (08:23)
[2023-06-19] MEDS: lisinopriL 20 MG TAB PO SCH (08:23)
[2023-06-19] MEDS: ESCITALOPRAM 10 MG TAB PO SCH (08:23)
[2023-06-19] MEDS: hydroCHLOROthiazide 25 MG TAB PO SCH (08:23)
--- NOTE | 2023-06-19 08:35 | P.PN ---
Subjective Progress Note Date: 06/19/23 Principal diagnosis: Status post left reverse total shoulder arthroplasty This is a 78 year-old male post left reverse total shoulder arthroplasty. This is post-op day 1. The patient was evaluated at the bedside today. The patient denies nausea, vomiting, abdominal pain, shortness of breath, and chest pain this morning. He states his pain is not controlled at this time. The patient states he is unable to urinate and has been straight cathed twice. Objective - Vital Signs Vital signs: Vital Signs Temp 98.6 F 06/19/23 07:20 Pulse 69 06/19/23 07:20 Resp 20 06/19/23 07:20 BP 112/69 06/19/23 07:20 Pulse Ox 96 06/19/23 07:20 FiO2 Intake & Output 06/18/23 06/19/23 06/19/23 18:59 06:59 18:59 Intake Total 1547 Output Total 100 450 Balance 1447 -450 Weight 70.1 kg Intake: IV 1107 Intake, IV Titration 100 Amount Clindamycin 900 mg In 50 Dextrose 5% in Water 50 ml @ 50 mls/hr IVPB Q8HR TAVIA Rx#:[id number] ceFAZolin 2 gm In Sodium 50 Chloride 0.9% 50 ml @ 100 mls/hr IVPB Q8HR TAVIA Rx# :[id number] Oral 340 Output: Urine 450 Straight 450 Estimated Blood Loss 100 Other: # Voids 1 - Exam The patient does not appear in acute distress. Alert and orientated x3. Prevena is clean dry and intact. Arm and forearm is soft and nontender. He is able to extend his wrist, fingers, and thumb with some weakness. There is numbness to the entire hand. Circulatory status is intact. - Labs Labs: Abnormal Lab Results - Last 24 Hours (Table) 06/18/23 06/18/23 06/18/23 Range/Units 10:45 16:23 20:19 POC Glucose (mg/dL) 212 H 209 H 281 H (70-110) mg/dL 06/19/23 Range/Units 05:51 POC Glucose (mg/dL) 141 H (70-110) mg/dL Assessment and Plan (1) Status post reverse total arthroplasty of left shoulder Current Visit: Yes Status: Acute Code(s): Z96.612 - PRESENCE OF LEFT ARTIFICIAL SHOULDER JOINT SNOMED Code(s): 41428233583193346 (2) Closed fracture of left proximal humerus Current Visit: No Status: Acute Code(s): S42.202A - UNSP FRACTURE OF UPPER END OF LEFT HUMERUS, INIT FOR CLOS FX SNOMED Code(s): 32691920 (3) Left shoulder pain Current Visit: No Status: Acute Code(s): M25.512 - PAIN IN LEFT SHOULDER SNOMED Code(s): 4863085562 Plan: 1. Continue pain control, we will switch to Percocet 2. Urinary retention to be addressed by internal medicine 3. Continue ambulation 4. Anticipate discharge back to [facility] as soon as urinary retention resolved and pain is controlled.
[2023-06-19] MEDS: oxyCODONE-APAP 5-325MG 1 EACH TAB PO PRN ×3 (09:10→18:45)
[2023-06-19] MEDS: LACTATED RINGERS 1,000 ML IV SCH (09:14)
[2023-06-19 11:22] LABS: Glucose,Whole Blood 132 mg/dL (70-110)
--- NOTE | 2023-06-19 11:33 | P.ANPRN ---
Procedure Note - Anesthesia - Nerve Block Performed Left Interscalene Single Time Out Performed: Yes Date of Procedure: 06/18/23 Procedure Start Time: 06:58 Procedure Stop Time: 07:03 Location of Patient: PreOp Indication: Acute Post-Operative Pain, Requested by Surgeon Sedation Type: Sedate with meaningful contact maintained Preparation: Sterile Prep Position: Supine Needle Types: Pajunk Needle Gauge: 21 Ultrasound used to visualize needle placement: Yes Ultrasound used to observe medication spread: Yes Blood Aspirated: No Pain Paresthesia on Injection Noted: No Resistance on Injection: Normal Image Stored and Saved: Yes Events: Uneventful and Well Tolerated (Ropivacaine 0.5% 20 mL plus dexamethasone 4 mg)
[2023-06-19] MEDS: TAMSULOSIN 0.4 MG CAP.ER.24H PO SCH (11:37)
--- NOTE | 2023-06-19 12:16 | P.CONS ---
History of Present Illness - Reason for Consult Consult date: 06/19/23 Medical management - History of Present Illness History of present illness; patient is a 78-year-old gentleman with past medical history significant for hypertension, hypothyroidism, diabetes mellitus , left proximal humerus fracture who was brought to the hospital for elective reverse total arthroplasty of left shoulder.patient was recently seen in the hospital for left proximal humerus fracture, at that time orthopedics recommended conservative management and was discharged to rehab. Orthopedics recommended to do surgery in 1 week for which patient presented to the hospital yesterday. Patient underwent the procedure and postoperatively internal medicine team were consulted for medical management . REVIEW OF SYSTEMS: CONSTITUTIONAL: No fever, no malaise, no fatigue. HEENT: No recent visual problems or hearing problems. Denied any sore throat. CARDIOVASCULAR: No chest pain, orthopnea, PND, no palpitations, no syncope. PULMONARY: No shortness of breath, no cough, no hemoptysis. GASTROINTESTINAL: No diarrhea, no nausea, no vomiting, no abdominal pain. NEUROLOGICAL: No headaches, no weakness, no numbness. HEMATOLOGICAL: Denies any bleeding or petechiae. GENITOURINARY: Complaining of urinary retention MUSCULOSKELETAL/RHEUMATOLOGICAL: Left shoulder pain ENDOCRINE: Denies any polyuria or polydipsia. The rest of the 14-point review of systems is negative. PHYSICAL EXAMINATION: GENERAL: The patient is alert and oriented x3, not in any acute distress. Well developed, well nourished. HEENT: Pupils are round and equally reacting to light. EOMI. No scleral icterus. No conjunctival pallor. Normocephalic, atraumatic. No pharyngeal erythema. No thyromegaly. CARDIOVASCULAR: S1 and S2 present. No murmurs, rubs, or gallops. PULMONARY: Chest is clear to auscultation, no wheezing or crackles. ABDOMEN: Soft, nontender, nondistended, normoactive bowel sounds. No palpable organomegaly. MUSCULOSKELETAL: Left shoulder surgical incision seen EXTREMITIES: No cyanosis, clubbing, or pedal edema. NEUROLOGICAL: Gross neurological examination did not reveal any focal deficits. SKIN: No rashes. Assessment and plan Status post reverse total arthroplasty of left shoulder Closed fracture of left proximal humerus Left shoulder pain Hypertension Sjo-[id number] diabetes mellitus Hypothyroidism Urineary Retention Monitor vital signs Monitor CBC Monitor CMP Continue pain management per orthopedics Continue post op surgical site care per orthopedics Continue DVT prophylaxis per orthopedics Monitor blood sugar levels, continue statins Insulin Start patient on Flomax, continue bladder management per protocol Resume home meds Labs and medication were reviewed.. Continue same treatment. Continue with symptomatic treatment. Resume home medication. Monitor labs and vitals. DVT and GI prophylaxis. Further recommendations as per clinical course of the patient Dictation was produced using [employer] dictation software. please excuse any grammatical, word or spelling errors. Past Medical History Past Medical History: Cancer, Diabetes Mellitus, Hyperlipidemia, Hypertension, Osteoarthritis (OA), Thyroid Disorder Additional Past Medical History / Comment(s): Hx thyroid cancer 20-25 yrs ago. Constipation. History of Any Multi-Drug Resistant Organisms: None Reported Past Surgical History: Back Surgery, Cholecystectomy, Orthopedic Surgery Additional Past Surgical History / Comment(s): Thyroidectomy, back surgery X2, knee surgery X2. Past Anesthesia/Blood Transfusion Reactions: No Reported Reaction Additional Past Anesthesia/Blood Transfusion Reaction / Comm: Clausterphobic. Past Psychological History: Anxiety, Depression Smoking Status: Former smoker Past Alcohol Use History: Rare Past Drug Use History: None Reported - Past Family History Mother Family Medical History: Diabetes Mellitus Father Family Medical History: Myocardial Infarction (AL) Medications and Allergies Home Medications Medication Instructions Recorded Confirmed Type Atorvastatin [Lipitor] 10 mg PO HS 06/10/23 06/18/23 History Baclofen 10 mg PO HS 06/10/23 06/18/23 History Benazepril/Hydrochlorothiazide 1 tab PO DAILY 06/10/23 06/18/23 History [Benazepril-Hctz 20-25 mg Tab] Escitalopram [Lexapro] 10 mg PO DAILY 06/10/23 06/18/23 History Levothyroxine Sodium [Synthroid] 125 mcg PO QAM 06/10/23 06/18/23 History Magnesium Oxide [Magox 400] 400 mg PO DAILY 06/10/23 06/18/23 History Pioglitazone [Actos] 15 mg PO DAILY 06/10/23 06/18/23 History atenoloL [Tenormin] 25 mg PO DAILY 06/10/23 06/18/23 History glipiZIDE [glipiZIDE ER] 2.5 mg PO DAILY 06/10/23 06/18/23 History ALPRAZolam [Xanax] 0.25 mg PO HS 3 Days #3 tab 06/12/23 06/18/23 Rx Cyclobenzaprine [Flexeril] 10 mg PO TID PRN 7 Days #21 tab 06/12/23 06/18/23 Rx polyethylene glycoL 3350 [Miralax] 17 gm PO DAILY packet 06/12/23 06/18/23 Rx Ergocalciferol [Vitamin D2 (1250 1,250 mcg PO FELIX 06/16/23 06/18/23 History Mcg = 98388 Iu)] HYDROcodone/APAP 7.5-325MG [Napoleon 1 each PO Q4H PRN 06/16/23 06/18/23 History 7.5-325] Multivitamins, Thera [Multivitamin 1 tab PO DAILY 06/16/23 06/18/23 History (formulary)] Omeprazole 20 mg PO QAM 06/16/23 06/18/23 History oxyCODONE HCL/ACETAMINOPHEN 1 tab PO Q4-6H PRN #30 tab 06/19/23 Rx [Percocet 5-325 mg] Allergies Allergy/AdvReac Type Severity Reaction Status Date / Time No Known Allergies Allergy Verified 06/18/23 06:40 Physical Exam Vitals: Vital Signs Temp Pulse Pulse Resp BP Pulse Ox 06/19/23 07:20 98.6 F 69 20 112/69 96 06/19/23 01:29 97.8 F 68 100/61 93 L 06/18/23 20:00 98 F 67 17 106/67 95 06/18/23 13:33 97.8 F 76 19 110/74 94 L 06/18/23 12:30 67 16 113/77 97 06/18/23 12:00 66 16 117/77 99 06/18/23 11:30 67 16 131/79 98 06/18/23 11:15 65 16 132/77 97 06/18/23 11:00 64 16 128/82 95 06/18/23 10:45 64 16 133/77 98 06/18/23 10:37 97.0 F L 70 16 138/77 97 Intake and Output 06/18/23 06/19/23 06/19/23 22:59 06:59 14:59 Intake Total 440 Output Total 450 800 Balance -10 -800 Intake: Intake, IV Titration 100 Amount Clindamycin 900 mg In 50 Dextrose 5% in Water 50 ml @ 50 mls/hr IVPB Q8HR [facility] Rx#:[id number] ceFAZolin 2 gm In Sodium 50 Chloride 0.9% 50 ml @ 100 mls/hr IVPB Q8HR [facility] Rx# :[id number] Oral 340 Output: Urine 450 800 Straight 450 Other: # Voids 1 Results Labs: Abnormal Lab Results - Last 24 Hours (Table) 06/18/23 06/18/23 06/18/23 Range/Units 10:45 16:23 20:19 POC Glucose (mg/dL) 212 H 209 H 281 H (70-110) mg/dL 06/19/23 Range/Units 05:51 POC Glucose (mg/dL) 141 H (70-110) mg/dL
[2023-06-19 16:19] LABS: Glucose,Whole Blood 167 mg/dL (70-110)
[2023-06-19] MEDS: ATORVASTATIN 10 MG TAB PO SCH (20:06)
[2023-06-19] MEDS: ALPRAZolam 0.25 MG TAB PO SCH (20:06)
[2023-06-19 20:50] LABS: Glucose,Whole Blood 205 mg/dL (70-110)
[2023-06-20] MEDS: oxyCODONE-APAP 5-325MG 1 EACH TAB PO PRN ×5 (01:08→20:29)
[2023-06-20 06:00] LABS: Glucose,Whole Blood 186 mg/dL (70-110)
[2023-06-20] MEDS: LEVOTHYROXINE 125 MCG TAB PO SCH (06:00)
[2023-06-20] MEDS: INSULIN ASPART (NovoLOG) 100 UNIT/ML VIAL SQ SCH ×4 (06:01→20:29)
[2023-06-20] MEDS: LACTATED RINGERS 1,000 ML IV SCH (06:02)
[2023-06-20] MEDS: polyethylene glycoL 3350 17 GM POWD.PACK PO SCH (09:23)
[2023-06-20] MEDS: MAGNESIUM OXIDE 400 MG TAB PO SCH (09:56)
[2023-06-20] MEDS: MULTIVITAMINS, THERA 1 EACH TAB PO SCH (09:56)
[2023-06-20] MEDS: atenoloL 25 MG TAB PO SCH (09:57)
[2023-06-20] MEDS: lisinopriL 20 MG TAB PO SCH (09:57)
[2023-06-20] MEDS: PIOGLITAZONE 15 MG TAB PO SCH (09:57)
[2023-06-20] MEDS: hydroCHLOROthiazide 25 MG TAB PO SCH (09:57)
[2023-06-20] MEDS: ESCITALOPRAM 10 MG TAB PO SCH (09:57)
[2023-06-20] MEDS: TAMSULOSIN 0.4 MG CAP.ER.24H PO SCH (09:57)
[2023-06-20] MEDS: PANTOPRAZOLE 40 MG TABLET PO SCH (09:57)
--- NOTE | 2023-06-20 10:24 | P.PN ---
Subjective Progress Note Date: 06/20/23 Principal diagnosis: Left proximal humerus fracture. Status post reverse total left shoulder. This is a 78 year-old male post left reverse total shoulder arthroplasty. This is post-op day 2. The patient was evaluated at the bedside today. The patient denies nausea, vomiting, abdominal pain, shortness of breath, and chest pain this morning. He states his pain is not controlled at this time. The patient states he is unable to urinate and has been straight cathed twice. He now has an indwelling Marcano catheter. He states that he did have a small bowel movement this morning. He states that he continues to have numbness to the hand. Objective - Vital Signs Vital signs: Vital Signs Temp 98.5 F 06/20/23 07:05 Pulse 62 06/20/23 07:05 Resp 18 06/20/23 07:05 BP 115/72 06/20/23 07:05 Pulse Ox 91 L 06/20/23 07:05 FiO2 Intake & Output 06/19/23 06/20/23 06/20/23 18:59 06:59 18:59 Output Total 800 850 Balance -800 -850 Output: Urine 800 850 Other: Voiding Method Indwelling Catheter Indwelling Catheter # Bowel Movements 1 1 - Exam This is a pleasant 78-year-old male in no acute distress. He is alert and oriented 3. Exam of left shoulder reveals that his Prevena wound VAC is in place and appears to be functioning well. He is able to extend his wrist and abduct and extend his thumb actively. Radial and ulnar pulses are +1/4. - Labs Labs: Abnormal Lab Results - Last 24 Hours (Table) 06/19/23 06/19/23 06/19/23 Range/Units 11:20 16:18 20:48 POC Glucose (mg/dL) 132 H 167 H 205 H (70-110) mg/dL 06/20/23 Range/Units 05:58 POC Glucose (mg/dL) 186 H (70-110) mg/dL Assessment and Plan Assessment: Postop reverse total shoulder, left. Status post proximal humerus fracture, left. Plan: The clinical findings are discussed with the patient. We will continue current care. The patient came from inpatient rehab for surgery and will likely return back to inpatient rehab at discharge.
[2023-06-20 11:43] LABS: Glucose,Whole Blood 176 mg/dL (70-110)
--- NOTE | 2023-06-20 13:39 | P.PN ---
Subjective Progress Note Date: 06/20/23 Principal diagnosis: patient is a 78-year-old gentleman with past medical history significant for hypertension, hypothyroidism, diabetes mellitus , left proximal humerus fracture who was brought to the hospital for elective reverse total arthroplasty of left shoulder.patient was recently seen in the hospital for left proximal humerus fracture, at that time orthopedics recommended conservative management and was discharged to rehab. Orthopedics recommended to do surgery in 1 week for which patient presented to the hospital yesterday. Patient underwent the procedure and postoperatively internal medicine team were consulted for medical management . 06/20. Patient seen and examined. Still having pain in left shoulder. Patient is medically cleared for discharge to rehab facility REVIEW OF SYSTEMS: CONSTITUTIONAL: No fever, no malaise,. CARDIOVASCULAR: No chest pain, no palpitations, no syncope. PULMONARY: No shortness of breath, no cough, GASTROINTESTINAL: No diarrhea, no nausea, no vomiting, no abdominal pain. NEUROLOGICAL: No headaches, no weakness, PHYSICAL EXAMINATION: GENERAL: The patient is alert and oriented x3, not in any acute distress. Well developed, well nourished. HEENT: Pupils are round and equally reacting to light. EOMI. No scleral icterus. No conjunctival pallor. Normocephalic, atraumatic. No pharyngeal erythema. No thyromegaly. CARDIOVASCULAR: S1 and S2 present. No murmurs, rubs, or gallops. PULMONARY: Chest is clear to auscultation, no wheezing or crackles. ABDOMEN: Soft, nontender, nondistended, normoactive bowel sounds. No palpable organomegaly. MUSCULOSKELETAL: Left shoulder surgical incision seen, wound VAC seen EXTREMITIES: No cyanosis, clubbing, or pedal edema. NEUROLOGICAL: Gross neurological examination did not reveal any focal deficits. SKIN: No rashes. Assessment and plan Status post reverse total arthroplasty of left shoulder Closed fracture of left proximal humerus Left shoulder pain Hypertension Tpe-uqnipem-hazbjawtu diabetes mellitus Hypothyroidism Urineary Retention Monitor vital signs Monitor CBC Monitor CMP Continue pain management per orthopedics Continue post op surgical site care per orthopedics Continue DVT prophylaxis per orthopedics Monitor blood sugar levels, continue statins Insulin Continue Flomax, continue bladder management per protocol Labs and medication were reviewed.. Continue same treatment. Continue with symptomatic treatment. Resume home medication. Monitor labs and vitals. DVT and GI prophylaxis. Further recommendations as per clinical course of the patient Dictation was produced using [employer] dictation software. please excuse any grammatical, word or spelling errors. Objective - Vital Signs Vital signs: Vital Signs Temp 98.5 F 06/20/23 07:05 Pulse 62 06/20/23 07:05 Resp 18 06/20/23 07:05 BP 115/72 06/20/23 07:05 Pulse Ox 91 L 06/20/23 07:05 FiO2 Intake & Output 06/19/23 06/20/23 06/20/23 18:59 06:59 18:59 Output Total 800 850 Balance -800 -850 Output: Urine 800 850 Other: Voiding Method Indwelling Catheter Indwelling Catheter # Bowel Movements 1 1 - Labs Labs: Abnormal Lab Results - Last 24 Hours (Table) 06/19/23 06/19/23 06/19/23 Range/Units 11:20 16:18 20:48 POC Glucose (mg/dL) 132 H 167 H 205 H (70-110) mg/dL 06/20/23 Range/Units 05:58 POC Glucose (mg/dL) 186 H (70-110) mg/dL
[2023-06-20 17:01] LABS: Glucose,Whole Blood 189 mg/dL (70-110)
[2023-06-20 19:28] LABS: Glucose,Whole Blood 203 mg/dL (70-110)
[2023-06-20] MEDS: ATORVASTATIN 10 MG TAB PO SCH (20:29)
[2023-06-20] MEDS: ALPRAZolam 0.25 MG TAB PO SCH (20:30)
[2023-06-20] MEDS: SENNOSIDES-DOCUSATE SODIUM 1 EACH TAB PO SCH (20:30)
[2023-06-21] MEDS: oxyCODONE-APAP 5-325MG 1 EACH TAB PO PRN (04:18)
[2023-06-21 06:16] LABS: Glucose,Whole Blood 156 mg/dL (70-110)
[2023-06-21] MEDS: LACTATED RINGERS 1,000 ML IV SCH (06:17)
[2023-06-21] MEDS: INSULIN ASPART (NovoLOG) 100 UNIT/ML VIAL SQ SCH ×4 (06:17→21:32)
[2023-06-21] MEDS: PANTOPRAZOLE 40 MG TABLET PO SCH (06:19)
[2023-06-21] MEDS: LEVOTHYROXINE 125 MCG TAB PO SCH (06:19)
[2023-06-21] MEDS: TAMSULOSIN 0.4 MG CAP.ER.24H PO SCH (08:46)
[2023-06-21] MEDS: lisinopriL 20 MG TAB PO SCH (08:46)
[2023-06-21] MEDS: hydroCHLOROthiazide 25 MG TAB PO SCH (08:46)
[2023-06-21] MEDS: PIOGLITAZONE 15 MG TAB PO SCH (08:46)
[2023-06-21] MEDS: MAGNESIUM OXIDE 400 MG TAB PO SCH (08:46)
[2023-06-21] MEDS: atenoloL 25 MG TAB PO SCH (08:46)
[2023-06-21] MEDS: polyethylene glycoL 3350 17 GM POWD.PACK PO SCH (08:46)
[2023-06-21] MEDS: MULTIVITAMINS, THERA 1 EACH TAB PO SCH (08:46)
[2023-06-21] MEDS: ESCITALOPRAM 10 MG TAB PO SCH (08:46)
--- NOTE | 2023-06-21 10:05 | P.PN ---
Subjective Progress Note Date: 06/21/23 Principal diagnosis: Left proximal humerus fracture. Status post reverse total left shoulder. This is a 78 year-old male post left reverse total shoulder arthroplasty. This is post-op day 3. The patient was evaluated at the bedside today. The patient denies nausea, vomiting, abdominal pain, shortness of breath, and chest pain this morning. He states his pain is fairly well controlled at this time. He has an indwelling Marcano catheter. He states that he continues to have numbness to the hand. Objective - Vital Signs Vital signs: Vital Signs Temp 98.2 F 06/21/23 07:01 Pulse 64 06/21/23 07:01 Resp 16 06/21/23 07:01 BP 136/79 06/21/23 07:01 Pulse Ox 97 06/21/23 07:01 FiO2 Intake & Output 06/20/23 06/21/23 06/21/23 18:59 06:59 18:59 Output Total 1700 900 Balance -1700 -900 Output: Urine 1700 900 Straight 850 Other: Voiding Method Indwelling Catheter Indwelling Catheter # Voids 2 # Bowel Movements 1 1 - Exam This is a pleasant 78-year-old male in no acute distress. He is alert and oriented 3. Exam of left shoulder reveals that his Prevena wound VAC is in place and appears to be functioning well. He is able to extend his wrist and abduct and extend his thumb actively. Radial and ulnar pulses are +1/4. - Labs Labs: Abnormal Lab Results - Last 24 Hours (Table) 06/20/23 06/20/23 06/20/23 Range/Units 11:42 16:58 19:26 POC Glucose (mg/dL) 176 H 189 H 203 H (70-110) mg/dL 06/21/23 Range/Units 06:15 POC Glucose (mg/dL) 156 H (70-110) mg/dL Assessment and Plan Assessment: Postop reverse total shoulder, left. Status post proximal humerus fracture, left. (1) Urinary retention Current Visit: Yes Status: Acute Code(s): R33.9 - RETENTION OF URINE, UNSPECIFIED SNOMED Code(s): 067765715 (2) Status post reverse total arthroplasty of left shoulder Current Visit: Yes Status: Acute Code(s): Z96.612 - PRESENCE OF LEFT ARTIFICIAL SHOULDER JOINT SNOMED Code(s): 45107693257641630 (3) Closed fracture of left proximal humerus Current Visit: No Status: Acute Code(s): S42.202A - UNSP FRACTURE OF UPPER END OF LEFT HUMERUS, INIT FOR CLOS FX SNOMED Code(s): 40593385 Plan: The clinical findings are discussed with the patient. We will continue current care. The patient came from inpatient rehab for surgery and will likely return back to inpatient rehab at discharge. His Marcano catheter may be removed tomorrow morning for a voiding trial.
[2023-06-21 11:40] LABS: Glucose,Whole Blood 179 mg/dL (70-110)
[2023-06-21 12:58] LABS: Basophils % (A) 0 %; Eosinophils # (A) 0.1 k/uL (0-0.7); Eosinophils % (A) 1 %; HCT 39.1 % (39.0-53.0); HGB 12.9 gm/dL (13.0-17.5); Lymphocytes # (A) 1.4 k/uL (1.0-4.8); Lymphocytes % (A) 11 %; MCH 30.6 pg (25.0-35.0); MCV 92.6 fL (80.0-100.0); Mean Platelet Volume 7.9; Monocytes # (A) 0.8 k/uL (0-1.0); Monocytes % (A) 6 %; Neutrophils # (A) 10.4 k/uL (1.3-7.7); Neutrophils % (A) 81 %; Platelet Count 388 k/uL (150-450); RBC 4.22 m/uL (4.30-5.90); RDW 12.9 % (11.5-15.5); WBC 12.8 k/uL (3.8-10.6)
[2023-06-21 13:14] LABS: African American GFR (CKD) >90 (>60 ml/min/1.73 sqM); Anion Gap 13 mmol/L; Blood Urea Nitrogen 16 mg/dL (9-20); Calcium 9.2 mg/dL (8.4-10.2); Carbon Dioxide 25 mmol/L (22-30); Chloride 94 mmol/L (98-107); Glucose 147 mg/dL (74-99); Magnesium 1.6 mg/dL (1.6-2.3); Non-African American GFR(CKD) >90 (>60 ml/min/1.73 sqM); Potassium 3.8 mmol/L (3.5-5.1); Sodium 132 mmol/L (137-145)
--- NOTE | 2023-06-21 14:28 | P.PN ---
Subjective Progress Note Date: 06/21/23 Principal diagnosis: patient is a 78-year-old gentleman with past medical history significant for hypertension, hypothyroidism, diabetes mellitus , left proximal humerus fracture who was brought to the hospital for elective reverse total arthroplasty of left shoulder.patient was recently seen in the hospital for left proximal humerus fracture, at that time orthopedics recommended conservative management and was discharged to rehab. Orthopedics recommended to do surgery in 1 week for which patient presented to the hospital yesterday. Patient underwent the procedure and postoperatively internal medicine team were consulted for medical management . 06/20. Patient seen and examined. Still having pain in left shoulder. Patient is medically cleared for discharge to rehab facility 06/21. Patient seen and examined. Patient is frustrated about going back to rehab. Pain is better controlled. REVIEW OF SYSTEMS: CONSTITUTIONAL: No fever, no malaise,. CARDIOVASCULAR: No chest pain, no palpitations, no syncope. PULMONARY: No shortness of breath, no cough, GASTROINTESTINAL: No diarrhea, no nausea, no vomiting, no abdominal pain. NEUROLOGICAL: No headaches, no weakness, PHYSICAL EXAMINATION: GENERAL: The patient is alert and oriented x3, not in any acute distress. Well developed, well nourished. HEENT: Pupils are round and equally reacting to light. EOMI. No scleral icterus. No conjunctival pallor. Normocephalic, atraumatic. No pharyngeal erythema. No thyromegaly. CARDIOVASCULAR: S1 and S2 present. No murmurs, rubs, or gallops. PULMONARY: Chest is clear to auscultation, no wheezing or crackles. ABDOMEN: Soft, nontender, nondistended, normoactive bowel sounds. No palpable organomegaly. MUSCULOSKELETAL: Left shoulder surgical incision seen, wound VAC seen EXTREMITIES: No cyanosis, clubbing, or pedal edema. NEUROLOGICAL: Gross neurological examination did not reveal any focal deficits. SKIN: No rashes. Assessment and plan Status post reverse total arthroplasty of left shoulder Closed fracture of left proximal humerus Left shoulder pain Hypertension Npk-nhmijgh-suwdgbvgp diabetes mellitus Hypothyroidism Urineary Retention Monitor vital signs Monitor CBC Monitor CMP Continue pain management per orthopedics Continue post op surgical site care per orthopedics Continue DVT prophylaxis per orthopedics Monitor blood sugar levels, continue statins Insulin Continue Flomax, continue bladder management per protocol Labs and medication were reviewed.. Continue same treatment. Continue with symptomatic treatment. Resume home medication. Monitor labs and vitals. DVT and GI prophylaxis. Further recommendations as per clinical course of the patient Dictation was produced using [employer] dictation software. please excuse any grammatical, word or spelling errors. Objective - Vital Signs Vital signs: Vital Signs Temp 98.2 F 06/21/23 07:01 Pulse 64 06/21/23 07:01 Resp 16 06/21/23 07:01 BP 136/79 06/21/23 07:01 Pulse Ox 97 06/21/23 07:01 FiO2 Intake & Output 06/20/23 06/21/23 06/21/23 18:59 06:59 18:59 Output Total 1700 900 Balance -1700 -900 Output: Urine 1700 900 Straight 850 Other: Voiding Method Indwelling Catheter Indwelling Catheter # Voids 2 # Bowel Movements 1 1 - Labs CBC & Chem 7: 06/21/23 11:57 06/21/23 11:57 Labs: Abnormal Lab Results - Last 24 Hours (Table) 06/20/23 06/20/23 06/20/23 Range/Units 11:42 16:58 19:26 POC Glucose (mg/dL) 176 H 189 H 203 H (70-110) mg/dL 06/21/23 Range/Units 06:15 POC Glucose (mg/dL) 156 H (70-110) mg/dL
[2023-06-21 16:09] LABS: Glucose,Whole Blood 194 mg/dL (70-110)
[2023-06-21 19:47] LABS: Glucose,Whole Blood 205 mg/dL (70-110)
[2023-06-21] MEDS: SENNOSIDES-DOCUSATE SODIUM 1 EACH TAB PO SCH (21:35)
[2023-06-21] MEDS: ALPRAZolam 0.25 MG TAB PO SCH (21:35)
[2023-06-21] MEDS: ATORVASTATIN 10 MG TAB PO SCH (21:35)
[2023-06-22 06:26] LABS: Glucose,Whole Blood 184 mg/dL (70-110)
[2023-06-22] MEDS: INSULIN ASPART (NovoLOG) 100 UNIT/ML VIAL SQ SCH ×4 (06:59→20:35)
[2023-06-22] MEDS: LEVOTHYROXINE 125 MCG TAB PO SCH (06:59)
[2023-06-22] MEDS: lisinopriL 20 MG TAB PO SCH (07:32)
[2023-06-22] MEDS: MULTIVITAMINS, THERA 1 EACH TAB PO SCH (07:32)
[2023-06-22] MEDS: hydroCHLOROthiazide 25 MG TAB PO SCH (07:32)
[2023-06-22] MEDS: atenoloL 25 MG TAB PO SCH (07:32)
[2023-06-22] MEDS: TAMSULOSIN 0.4 MG CAP.ER.24H PO SCH (07:32)
[2023-06-22] MEDS: MAGNESIUM OXIDE 400 MG TAB PO SCH (07:33)
[2023-06-22] MEDS: polyethylene glycoL 3350 17 GM POWD.PACK PO SCH (07:33)
[2023-06-22] MEDS: PANTOPRAZOLE 40 MG TABLET PO SCH (07:33)
[2023-06-22] MEDS: PIOGLITAZONE 15 MG TAB PO SCH (07:33)
[2023-06-22] MEDS: ESCITALOPRAM 10 MG TAB PO SCH (07:34)
[2023-06-22] MEDS: LACTATED RINGERS 1,000 ML IV SCH (09:20)
--- NOTE | 2023-06-22 09:33 | P.PN ---
Subjective Progress Note Date: 06/22/23 Principal diagnosis: Left proximal humerus fracture. Status post reverse total left shoulder. This is a 78 year-old male post left reverse total shoulder arthroplasty. This is post-op day 4. The patient was evaluated at the bedside today. The patient denies nausea, vomiting, abdominal pain, shortness of breath, and chest pain this morning. He states his pain is fairly well controlled at this time. He has an indwelling Marcano catheter. He states that he continues to have numbness to the hand. He has removed his sling. Objective - Vital Signs Vital signs: Vital Signs Temp 97.8 F 06/22/23 02:00 Pulse 64 06/22/23 02:00 Resp 15 06/21/23 14:00 BP 143/75 06/22/23 02:00 Pulse Ox 97 06/22/23 02:00 FiO2 Intake & Output 06/21/23 06/22/23 06/22/23 18:59 06:59 18:59 Output Total 100 600 Balance -100 -600 Output: Urine 100 600 Other: Voiding Method Indwelling Catheter Indwelling Catheter # Bowel Movements 1 - Exam This is a pleasant 78-year-old male in no acute distress. He is alert and oriented 3. Exam of left shoulder reveals that his Prevena wound VAC is in place and appears to be functioning well. He is able to extend his wrist and abduct and extend his thumb actively. Radial and ulnar pulses are +1/4. - Labs CBC & Chem 7: 06/21/23 11:57 06/21/23 11:57 Labs: Abnormal Lab Results - Last 24 Hours (Table) 06/21/23 06/21/23 06/21/23 Range/Units 11:36 11:57 11:57 WBC 12.8 H (3.8-10.6) k/uL RBC 4.22 L (4.30-5.90) m/uL Hgb 12.9 L (13.0-17.5) gm/dL Neutrophils # 10.4 H (1.3-7.7) k/uL Sodium 132 L (137-145) mmol/L Chloride 94 L (98-107) mmol/L Creatinine 0.64 L (0.66-1.25) mg/dL Glucose 147 H (74-99) mg/dL POC Glucose (mg/dL) 179 H (70-110) mg/dL 06/21/23 06/21/23 06/22/23 Range/Units 16:07 19:45 06:25 WBC (3.8-10.6) k/uL RBC (4.30-5.90) m/uL Hgb (13.0-17.5) gm/dL Neutrophils # (1.3-7.7) k/uL Sodium (137-145) mmol/L Chloride (98-107) mmol/L Creatinine (0.66-1.25) mg/dL Glucose (74-99) mg/dL POC Glucose (mg/dL) 194 H 205 H 184 H (70-110) mg/dL Assessment and Plan Assessment: Postop reverse total shoulder, left. Status post proximal humerus fracture, left. (1) Urinary retention Current Visit: Yes Status: Acute Code(s): R33.9 - RETENTION OF URINE, UNSPECIFIED SNOMED Code(s): 080618120 (2) Status post reverse total arthroplasty of left shoulder Current Visit: Yes Status: Acute Code(s): Z96.612 - PRESENCE OF LEFT ARTIFICIAL SHOULDER JOINT SNOMED Code(s): 47742580782447125 (3) Closed fracture of left proximal humerus Current Visit: No Status: Acute Code(s): S42.202A - UNSP FRACTURE OF UPPER END OF LEFT HUMERUS, INIT FOR CLOS FX SNOMED Code(s): 72085919 Plan: The clinical findings are discussed with the patient. We will continue current care. The patient came from inpatient rehab for surgery and will likely return back to inpatient rehab at discharge. His Marcano catheter may be removed today. He is encouraged to drink lots of fluids today.
[2023-06-22 11:48] LABS: Glucose,Whole Blood 200 mg/dL (70-110)
--- NOTE | 2023-06-22 12:59 | P.PN ---
Subjective Progress Note Date: 06/22/23 Principal diagnosis: patient is a 78-year-old gentleman with past medical history significant for hypertension, hypothyroidism, diabetes mellitus , left proximal humerus fracture who was brought to the hospital for elective reverse total arthroplasty of left shoulder.patient was recently seen in the hospital for left proximal humerus fracture, at that time orthopedics recommended conservative management and was discharged to rehab. Orthopedics recommended to do surgery in 1 week for which patient presented to the hospital yesterday. Patient underwent the procedure and postoperatively internal medicine team were consulted for medical management . 06/20. Patient seen and examined. Still having pain in left shoulder. Patient is medically cleared for discharge to rehab facility 06/21. Patient seen and examined. Patient is frustrated about going back to rehab. Pain is better controlled. 06/22. Patient seen and examined. Continues to have left shoulder pain. Patient is not very happy at being in the hospital, wants to be discharged. REVIEW OF SYSTEMS: CONSTITUTIONAL: No fever, no malaise,. CARDIOVASCULAR: No chest pain, no palpitations, no syncope. PULMONARY: No shortness of breath, no cough, GASTROINTESTINAL: No diarrhea, no nausea, no vomiting, no abdominal pain. NEUROLOGICAL: No headaches, no weakness, PHYSICAL EXAMINATION: GENERAL: The patient is alert and oriented x3, not in any acute distress. Well developed, well nourished. HEENT: Pupils are round and equally reacting to light. EOMI. No scleral icterus. No conjunctival pallor. Normocephalic, atraumatic. No pharyngeal erythema. No thyromegaly. CARDIOVASCULAR: S1 and S2 present. No murmurs, rubs, or gallops. PULMONARY: Chest is clear to auscultation, no wheezing or crackles. ABDOMEN: Soft, nontender, nondistended, normoactive bowel sounds. No palpable o rganomegaly. MUSCULOSKELETAL: Left shoulder surgical incision seen, EXTREMITIES: No cyanosis, clubbing, or pedal edema. NEUROLOGICAL: Gross neurological examination did not reveal any focal deficits. SKIN: No rashes. Assessment and plan Status post reverse total arthroplasty of left shoulder Closed fracture of left proximal humerus Left shoulder pain Hypertension Esm-rkamfhv-wpmasqnbh diabetes mellitus Hypothyroidism Urineary Retention Monitor vital signs Monitor CBC Monitor CMP Continue pain management per orthopedics Continue post op surgical site care per orthopedics Continue DVT prophylaxis per orthopedics Monitor blood sugar levels, continue statins Insulin Continue Flomax, continue bladder management per protocol, remove Marcano Labs and medication were reviewed.. Continue same treatment. Continue with symptomatic treatment. Resume home medication. Monitor labs and vitals. DVT and GI prophylaxis. Further recommendations as per clinical course of the patient Dictation was produced using ip.access dictation software. please excuse any grammatical, word or spelling errors. Objective - Vital Signs Vital signs: Vital Signs Temp 98.1 F 06/22/23 07:14 Pulse 69 06/22/23 07:14 Resp 18 06/22/23 07:14 BP 114/73 06/22/23 07:14 Pulse Ox 93 L 06/22/23 07:14 FiO2 Intake & Output 06/21/23 06/22/23 06/22/23 18:59 06:59 18:59 Output Total 100 600 150 Balance -100 -600 -150 Output: Urine 100 600 150 Straight 150 Other: Voiding Method Indwelling Catheter Indwelling Catheter Indwelling Catheter # Bowel Movements 1 - Labs CBC & Chem 7: 06/21/23 11:57 06/21/23 11:57 Labs: Abnormal Lab Results - Last 24 Hours (Table) 06/21/23 06/21/23 06/21/23 Range/Units 11:57 11:57 16:07 WBC 12.8 H (3.8-10.6) k/uL RBC 4.22 L (4.30-5.90) m/uL Hgb 12.9 L (13.0-17.5) gm/dL Neutrophils # 10.4 H (1.3-7.7) k/uL Sodium 132 L (137-145) mmol/L Chloride 94 L (98-107) mmol/L Creatinine 0.64 L (0.66-1.25) mg/dL Glucose 147 H (74-99) mg/dL POC Glucose (mg/dL) 194 H (70-110) mg/dL 06/21/23 06/22/23 06/22/23 Range/Units 19:45 06:25 11:48 WBC (3.8-10.6) k/uL RBC (4.30-5.90) m/uL Hgb (13.0-17.5) gm/dL Neutrophils # (1.3-7.7) k/uL Sodium (137-145) mmol/L Chloride (98-107) mmol/L Creatinine (0.66-1.25) mg/dL Glucose (74-99) mg/dL POC Glucose (mg/dL) 205 H 184 H 200 H (70-110) mg/dL
[2023-06-22] MEDS: oxyCODONE-APAP 5-325MG 1 EACH TAB PO PRN (14:08)
[2023-06-22 16:45] LABS: Glucose,Whole Blood 190 mg/dL (70-110)
[2023-06-22] MEDS: ALPRAZolam 0.25 MG TAB PO SCH (20:36)
[2023-06-22] MEDS: ATORVASTATIN 10 MG TAB PO SCH (20:36)
[2023-06-22] MEDS: SENNOSIDES-DOCUSATE SODIUM 1 EACH TAB PO SCH (20:36)
[2023-06-22 21:00] LABS: Glucose,Whole Blood 142 mg/dL (70-110)
[2023-06-23 05:41] LABS: Glucose,Whole Blood 163 mg/dL (70-110)
[2023-06-23] MEDS: LACTATED RINGERS 1,000 ML IV SCH (05:55)
[2023-06-23] MEDS: INSULIN ASPART (NovoLOG) 100 UNIT/ML VIAL SQ SCH ×2 (06:10→12:17)
[2023-06-23] MEDS: PANTOPRAZOLE 40 MG TABLET PO SCH (06:10)
[2023-06-23] MEDS: LEVOTHYROXINE 125 MCG TAB PO SCH (06:10)
[2023-06-23] MEDS: MULTIVITAMINS, THERA 1 EACH TAB PO SCH (09:08)
[2023-06-23] MEDS: ESCITALOPRAM 10 MG TAB PO SCH (09:08)
[2023-06-23] MEDS: lisinopriL 20 MG TAB PO SCH (09:08)
[2023-06-23] MEDS: polyethylene glycoL 3350 17 GM POWD.PACK PO SCH (09:08)
[2023-06-23] MEDS: PIOGLITAZONE 15 MG TAB PO SCH (09:08)
[2023-06-23] MEDS: TAMSULOSIN 0.4 MG CAP.ER.24H PO SCH (09:08)
[2023-06-23] MEDS: atenoloL 25 MG TAB PO SCH (09:08)
[2023-06-23] MEDS: MAGNESIUM OXIDE 400 MG TAB PO SCH (09:09)
[2023-06-23] MEDS: hydroCHLOROthiazide 25 MG TAB PO SCH (09:09)
--- NOTE | 2023-06-23 09:12 | P.DS ---
Providers Date of admission: 06/19/23 09:40 Expected date of discharge: 06/23/23 Attending physician: Kristi Nogueira DO Consults: 06/18/23 10:38 Consult Physician Routine Consulting Provider: Makayla Swift Consult Reason/Comments: medical management Do you want consulting provider notified?: Yes Primary care physician: Rodriguez Ryan - Discharge Diagnosis(es) (1) Urinary retention Current Visit: Yes Status: Acute (2) Status post reverse total arthroplasty of left shoulder Current Visit: Yes Status: Acute (3) Closed fracture of left proximal humerus Current Visit: No Status: Acute Hospital Course: This is an 78-year-old male who has history of humeral neck fracture and presented to discuss surgical options. After discussion and consideration the patient elects to proceed with reverse total shoulder arthroplasty. The pt is seen preoperatively by their family physician and cleared for surgery. The patient is admitted to [facility] reverse for total left shoulder arthroplasty. He is doing well postoperatively. He continues to have some numbness to the hand. He is able to extend the wrist and thumb slightly. Vital signs and hemoglobin are stable. Pain is well controlled. The patient is requiring assistance with ADLs and ambulation. Patient is discharged to inpatient rehab today in good condition. Please see med rec for accurate list of home medications. Plan - Discharge Summary Discharge Rx Participant: Yes New Discharge Prescriptions: New oxyCODONE HCL/ACETAMINOPHEN [Percocet 5-325 mg] 1 tab PO Q4-6H PRN #30 tab PRN Reason: Pain No Action Levothyroxine Sodium [Synthroid] 125 mcg PO QAM Atorvastatin [Lipitor] 10 mg PO HS glipiZIDE [glipiZIDE ER] 2.5 mg PO DAILY Pioglitazone [Actos] 15 mg PO DAILY Baclofen 10 mg PO HS atenoloL [Tenormin] 25 mg PO DAILY HYDROcodone/APAP 7.5-325MG [Pelham 7.5-325] 1 each PO Q4H PRN PRN Reason: Pain Ergocalciferol [Vitamin D2 (1250 Mcg = 92005 Iu)] 1,250 mcg PO FELIX Omeprazole 20 mg PO QAM Benazepril/Hydrochlorothiazide [Benazepril-Hctz 20-25 mg Tab] 1 tab PO DAILY Escitalopram [Lexapro] 10 mg PO DAILY Magnesium Oxide [Magox 400] 400 mg PO DAILY Cyclobenzaprine [Flexeril] 10 mg PO TID PRN 7 Days #21 tab PRN Reason: Muscle Spasm polyethylene glycoL 3350 [Miralax] 17 gm PO DAILY packet ALPRAZolam [Xanax] 0.25 mg PO HS 3 Days #3 tab Multivitamins, Thera [Multivitamin (formulary)] 1 tab PO DAILY Discharge Medication List Atorvastatin [Lipitor] 10 mg PO HS 06/10/23 [History] Baclofen 10 mg PO HS 06/10/23 [History] Benazepril/Hydrochlorothiazide [Benazepril-Hctz 20-25 mg Tab] 1 tab PO DAILY 06/10/23 [History] Escitalopram [Lexapro] 10 mg PO DAILY 06/10/23 [History] Levothyroxine Sodium [Synthroid] 125 mcg PO QAM 06/10/23 [History] Magnesium Oxide [Magox 400] 400 mg PO DAILY 06/10/23 [History] Pioglitazone [Actos] 15 mg PO DAILY 06/10/23 [History] atenoloL [Tenormin] 25 mg PO DAILY 06/10/23 [History] glipiZIDE [glipiZIDE ER] 2.5 mg PO DAILY 06/10/23 [History] ALPRAZolam [Xanax] 0.25 mg PO HS 3 Days #3 tab 06/12/23 [Rx] Cyclobenzaprine [Flexeril] 10 mg PO TID PRN 7 Days #21 tab 06/12/23 [Rx] polyethylene glycoL 3350 [Miralax] 17 gm PO DAILY packet 06/12/23 [Rx] Ergocalciferol [Vitamin D2 (1250 Mcg = 18926 Iu)] 1,250 mcg PO FELIX 06/16/23 [History] HYDROcodone/APAP 7.5-325MG [Pelham 7.5-325] 1 each PO Q4H PRN 06/16/23 [History] Multivitamins, Thera [Multivitamin (formulary)] 1 tab PO DAILY 06/16/23 [History] Omeprazole 20 mg PO QAM 06/16/23 [History] oxyCODONE HCL/ACETAMINOPHEN [Percocet 5-325 mg] 1 tab PO Q4-6H PRN #30 tab 06/19/23 [Rx] Follow up Appointment(s)/Referral(s): Lotus Lisa, NPC [Nurse Practitioner] - 2 Weeks Activity/Diet/Wound Care/Special Instructions: Keep Prevena wound vac in place for 1 week. May remove on 06/25/2023. No dressing needed after Prevena is removed. May shower once Prevena is removed without covering incision Ice to shoulder Keep arm in sling but may come out for elbow range of motion exercises. May take over the counter stool softeners as needed for constipation due to pain medication. Follow up in 2 weeks with Lotus Lisa NP [facility] with any questions or concerns,
[2023-06-23 11:17] LABS: Glucose,Whole Blood 229 mg/dL (70-110)
[2023-06-23] MEDS: oxyCODONE-APAP 5-325MG 1 EACH TAB PO PRN (11:29)
--- NOTE | 2023-06-23 12:26 | P.PN ---
Subjective Progress Note Date: 06/23/23 Principal diagnosis: patient is a 78-year-old gentleman with past medical history significant for hypertension, hypothyroidism, diabetes mellitus , left proximal humerus fracture who was brought to the hospital for elective reverse total arthroplasty of left shoulder.patient was recently seen in the hospital for left proximal humerus fracture, at that time orthopedics recommended conservative management and was discharged to rehab. Orthopedics recommended to do surgery in 1 week for which patient presented to the hospital yesterday. Patient underwent the procedure and postoperatively internal medicine team were consulted for medical management . 06/20. Patient seen and examined. Still having pain in left shoulder. Patient is medically cleared for discharge to rehab facility 06/21. Patient seen and examined. Patient is frustrated about going back to rehab. Pain is better controlled. 06/22. Patient seen and examined. Continues to have left shoulder pain. Patient is not very happy at being in the hospital, wants to be discharged. 06/23. Patient seen and examined. Being discharged to rehab in stable condition REVIEW OF SYSTEMS: CONSTITUTIONAL: No fever, no malaise,. CARDIOVASCULAR: No chest pain, no palpitations, no syncope. PULMONARY: No shortness of breath, no cough, GASTROINTESTINAL: No diarrhea, no nausea, no vomiting, no abdominal pain. NEUROLOGICAL: No headaches, no weakness, PHYSICAL EXAMINATION: GENERAL: The patient is alert and oriented x3, not in any acute distress. Well developed, well nourished. HEENT: Pupils are round and equally reacting to light. EOMI. No scleral icterus. No conjunctival pallor. Normocephalic, atraumatic. No pharyngeal erythema. No thyromegaly. CARDIOVASCULAR: S1 and S2 present. No murmurs, rubs, or gallops. PULMONARY: Chest is clear to auscultation, no wheezing or crackles. ABDOMEN: Soft, nontender, nondistended, normoactive bowel sounds. No palpable organomegaly. MUSCULOSKELETAL: Left shoulder surgical incision seen, EXTREMITIES: No cyanosis, clubbing, or pedal edema. NEUROLOGICAL: Gross neurological examination did not reveal any focal deficits. SKIN: No rashes. Assessment and plan Status post reverse total arthroplasty of left shoulder Closed fracture of left proximal humerus Left shoulder pain Hypertension Ngo-cltexqd-gxpjykmvh diabetes mellitus Hypothyroidism Urineary Retention Monitor vital signs Monitor CBC Monitor CMP Continue pain management per orthopedics Continue post op surgical site care per orthopedics Continue DVT prophylaxis per orthopedics Monitor blood sugar levels, continue statins Insulin Continue Flomax Patient medical stable for discharge Labs and medication were reviewed.. Continue same treatment. Continue with symptomatic treatment. Resume home medication. Monitor labs and vitals. DVT and GI prophylaxis. Further recommendations as per clinical course of the patient Dictation was produced using [employer] dictation software. please excuse any grammatical, word or spelling errors. Objective - Vital Signs Vital signs: Vital Signs Temp 98.4 F 06/23/23 07:34 Pulse 70 06/23/23 07:34 Resp 16 06/23/23 07:34 BP 148/89 06/23/23 07:34 Pulse Ox 97 06/23/23 07:34 FiO2 Intake & Output 06/22/23 06/23/23 06/23/23 18:59 06:59 18:59 Output Total 150 Balance -150 Output: Urine 150 Straight 150 Other: Voiding Method Indwelling Catheter Toilet Urinal # Voids 1 2 # Bowel Movements 2 - Labs CBC & Chem 7: 06/21/23 11:57 06/21/23 11:57 Labs: Abnormal Lab Results - Last 24 Hours (Table) 06/22/23 06/22/23 06/23/23 Range/Units 16:44 20:59 05:40 POC Glucose (mg/dL) 190 H 142 H 163 H (70-110) mg/dL 06/23/23 Range/Units 11:15 POC Glucose (mg/dL) 229 H (70-110) mg/dL
[2023-06-23 13:07] VITALS: BP 127/80; PULSE 58; RESP 15; TEMP 98.1
--- NOTE | 2023-07-01 17:02 | P.OP ---
Date of Procedure: 06/19/23 Preoperative Diagnosis: Left Proximal humerus fracture Postoperative Diagnosis: same Procedure(s) Performed: Left reverse total shoulder arthroplasty Implants: Douglas mini baseplate, 36mm glenosphere Fracture stem 10mm, Standard tray and PE cemented Anesthesia: yesenia ALONZO Surgeon: Kristi Nogueira Service Bar Cashier #1: Lotus Lisa Estimated Blood Loss (ml): 200 Condition: stable Disposition: PACU Indications for Procedure: The patient had a ground level fall on 06/08/23. He has a displaced proximal humerus fracture. Given the displacement of the humerus and his age, we will be proceeding with a reverse total shoulder arthroplasty. Operative Findings: osteoporotic bone, comminuted proximal humerus fracture Description of Procedure: The patient, operative extremity, and procedure were identified in the preop holding area. After informed consent was obtained, he received a regional block and was brought back to the OR where she was placed under general and placed in the beach chair position. All bony and neurovascular structures were well padded. The upper extremity was then prepped and draped in normal sterile fashion. An oblique incision was then made from the corocoid towards the attachment of the deltoid. Dissection was carried down to the delto pec interval and the cephalic vein was identified and mobilized laterally. About 5mm of the pectoralis insertion was released. A wolfe elevator was swept under the acormion to clear the subdeltoid space. The conjoined tendon was identified and the clavipectoral fascia was released to allow for placement of the annika retractor. The biceps tendon was located in the groove and released. A tenodesis was performed distal to the bicipital groove with an 0 vicyrl. A saw was then utilized to perform and osteotomy of the greater and lesser tuberositie. The subscapularis was carefully freed and the tendon and lesser tuberosity was tucked medially. A ronguer was utilized to remove the remaining head. Both tuberosities were tagged with #3 fiberwire. Attention was then turned to the glenoid. The biceps tendon was followed to the labrum which was removed using bovey cautery. The axillary nerve was palpated and protected. The edges of the glenoid were exposed. The aiming guide was used to insert the guide pin at the center of the glenoid. The appropriate reamers were utilized to create the bleediing bone base for the glenoid. The central hole was drilled and the base plate was inserted with the nonlocking screw. A locking screws were inserted in the remaining holes. A standard 36mm glenosphere was then impacted. Attention was then turned to the humerus. The opening reamers were utilized followed by serial broaches with about 20 degrees of retroversion. A size 10 was found to be a good fit with axial stability. There was no rotational stability however. The decision was made to cement the implant. The stem was then placed with the lateral edge about 4cm from the insertion of the pec minor. The trial humeral components were assembled and reduction showed good tension and stability with approprate range of motion. The trials were removed and the final implants were inserted. A larkshead knot was set to bring the two tuberosities together. A fibertape suture was threaded through the implant for an around the world construct. Final reduction of the joint again showed good stability and tension with appropriate range of motion. The construct was copiously irrigated with pulse lavage. The tuberosities were reduced and fixed with an around the [place] construct with fibertape and fiberwire sutures. The wound was closed in a layered fashion with 0 vicryl, 3.0 vicryl, 4.0 monocryl, and skin glue. Wound was dressed with a provena dressing.
== END 2023-06-23 14:02 ==
LOC: OR 05:49 → 4SSUR 10:37 → OR 06-19 09:40 → 4SSUR 06-19 09:40
PROVIDERS: ADMIT Orthopaedic Surgery Hand Surgery; ATTEND Orthopaedic Surgery Hand Surgery
DX: S42.222A 2-part displaced fracture of surgical neck of left humerus, initial encounter for closed fracture (principal); I10 Essential (primary) hypertension; E11.9 Type 2 diabetes mellitus without complications; E89.0 Postprocedural hypothyroidism; M81.0 Age-related osteoporosis without current pathological fracture; R33.9 Retention of urine, unspecified; R20.0 Anesthesia of skin; E78.5 Hyperlipidemia, unspecified; M19.90 Unspecified osteoarthritis, unspecified site; K59.00 Constipation, unspecified; F40.240 Claustrophobia; F32.A Depression, unspecified; F41.9 Anxiety disorder, unspecified; R26.2 Difficulty in walking, not elsewhere classified; W01.0XXA Fall on same level from slipping, tripping and stumbling without subsequent striking against object, initial encounter; Z79.890 Hormone replacement therapy; Z79.84 Long term (current) use of oral hypoglycemic drugs; Z79.899 Other long term (current) drug therapy; Z88.8 Allergy status to other drugs, medicaments and biological substances; Z85.850 Personal history of malignant neoplasm of thyroid; Z90.49 Acquired absence of other specified parts of digestive tract; Z87.891 Personal history of nicotine dependence; Z98.890 Other specified postprocedural states; Z82.49 Family history of ischemic heart disease and other diseases of the circulatory system; Z83.3 Family history of diabetes mellitus
CPT/HCPCS: 23472; 97116; 97162; 97530; 97535; 97167; 64415; 80048; 83735; 85025; 73020; G0378 ×5; C1776; C1713; J2250; J0330; J1100 ×2; J2710; J0690 ×2; J2405; J2001; J3010; J2795; J2704; J1170 ×2; J2371; J0736 ×2

== ENCOUNTER → 2024-02-18 | Outpatient (CLI) | payer MEDICARE ==
[2024-02-18 09:16] VITALS: BP 168/90; PULSE 52; RESP 16; TEMP 97.8
--- NOTE | 2024-02-24 08:45 | P.PAINPG ---
PQRS Measure Charge Sheet Comment: HISTORY OF PRESENT ILLNESS: A 79 yr old male w son-in-law at side as a referral from Dr Nogueira presents today w severe and chronic LBP> 1 yr secondary to post laminectomy syndrome for evaluation. Pt states pain level is provoked at 8 /10 in intensity, intermittent, localized in the lumbar spine, predominantly axial, achy in character w occasional shooting pain towards the RLE. Pain is provoked by sitting upright. Pain is alleviated by PT x 6 wks which ended in Dec 2023, physician guided home stretches daily since Dec 2023, heat, medications (Tramadol, Neurontin, Tyl, topical Salon Pas, use of a walker for ambulatory assistance, repositioning and rest . PMH: OA, NIDDM II, Hyperlipidemia, HTN, Hypothyroidism, GERD, MDD/ Anxiety/ Claustrophobia PSH: L Reverse Shoulder Arthroplasty (Jun 2023), Thyroidectomy s/p Thyroid CA, Cholecystectomy, Lumbar Surgery x2, Knee Surgery x2 SH: Former tobacco user, Rare ETOH use, No illicit drug use FH: Mo- DM. Fa- CO All: See list Meds: See list REVIEW OF ORGAN SYSTEMS: CONSTITUTIONAL: No fevers or chills. No recent weight loss. NEUROLOGICAL: + numbness and tingling along the distal extremities. No seizure disorders or headaches. MUSCULOSKELETAL: + pain PSYCHIATRIC: Denies current depression or suicidal thoughts. Physical Examinations : Constitutional : Cooperative , not in acute distress . Neurologic : Cranial nerve II to XII intact. No focal neurological deficits. Psychiatric : alert & oriented x 3. Matching mood & appropriate affect. Judgment & insight intact. Musculoskeletal : Cervical Spine Motor strength in the deltoid and biceps: Normal right side. Normal Left side Motor strength biceps and the wrist extensors: Normal right side . Normal left side Motor strength in the triceps muscle: Normal right side. Normal left side Deep tendon reflexes: Normal at the biceps. Normal at Brachioradialis. Normal at triceps Vertebral body tenderness to deep palpation over Cervical facet loading test: positive bilaterally Spurling test: positive bilaterally Neck distraction test: positive bilaterally Yehuda sign: positive bilaterally Lumbar spine +Incisional Scar Motor strength lower extremities ,thigh and legs 5/5 Right side , 5/5 Left side Deep tendon reflexes : Normal Knee Jerk. Normal Ankle Jerk Vertebral body tenderness over L4 Pineda Test positive Lumbar facet Loading Test: positive Right / positive Left Range of motion of the lumbar spine Flexion 30 degrees, extension 10 degrees Straight Leg Raise test: Left/ Right positive at < 30 degrees Eliseo test: positive right / positive left. Severe tenderness over the Sacroiliac joint on the Right / Left sides Gaenslen test: positive bilaterally Seated flexion test: positive bilaterally. Sacral spine : Severe tenderness over the Sacroiliac joint: right side / left side Range of motion: Flexion of the lumbar spine <60 degrees Range of motion: Extension of the lumbar spine <20 degrees Gaenslen's Test positive Eliseo test: positive right side / left side Thigh Thrust Test Sacral Thrust Test Imaging: Images of the MRI noncontrast of the lumbar spine from [facility] from 09/09/23 reviewed Assessment/ Plan : Post laminectomy syndrome Recommendation of BL TFESI L4-L5 #3 (had 2 since October 2023). Risks, benefits of p rocedure discussed and patient verbalized understanding. Admits to anti- coagulant use or medical history of diabetes. Protocol for discontinuation/ continuation of medications darvin procedure discussed. All questions answered. I have spent greater than 30 minutes on patient care today. Dr Nix was available by phone for the evaluation of this patient. The time was used to review the medical records including relevant urine studies and Prescription history (MAPs), review of the available imaging, evaluation and examination of the patient, coordination of care with the medical staff and if applicable referring physicians, as well as creation of the medical record Home Medications: Ambulatory Orders Atorvastatin [Lipitor] 10 mg PO HS 06/10/23 Benazepril/Hydrochlorothiazide [Benazepril-Hctz 20-25 mg Tab] 1 tab PO DAILY 06/10/23 Escitalopram [Lexapro] 10 mg PO DAILY 06/10/23 Levothyroxine Sodium [Synthroid] 125 mcg PO QAM 06/10/23 Magnesium Oxide [Magox 400] 400 mg PO DAILY 06/10/23 Pioglitazone [Actos] 15 mg PO DAILY 06/10/23 atenoloL [Tenormin] 25 mg PO DAILY 06/10/23 glipiZIDE [glipiZIDE ER] 2.5 mg PO DAILY 06/10/23 Cyclobenzaprine [Flexeril] 10 mg PO TID PRN 7 Days #21 tab 06/12/23 polyethylene glycoL 3350 [Miralax] 17 gm PO DAILY packet 06/12/23 Ergocalciferol [Vitamin D2 (1250 Mcg = 65409 Iu)] 1,250 mcg PO FELIX 06/16/23 Multivitamins, Thera [Multivitamin (formulary)] 1 tab PO DAILY 06/16/23 Omeprazole 20 mg PO QAM 06/16/23 oxyCODONE HCL/ACETAMINOPHEN [Percocet 5-325 mg] 1 tab PO Q4-6H PRN #30 tab 06/19/23 ALPRAZolam [Xanax] 0.25 mg PO HS 3 Days #3 tab 06/23/23 Tamsulosin [Flomax] 0.4 mg PO PC-BRKFST #30 cap 06/23/23 Controlled Substance Measures - Controlled Substance Measures Is patient prescribed a controlled substance at discharge?: No
== END ==
LOC: PNWHC3 08:29
PROVIDERS: ATTEND Specialist
DX: M54.16 Radiculopathy, lumbar region
CPT/HCPCS: 99211

== ENCOUNTER 2024-03-08 08:13 | Day surgery (SDC) | payer MEDICARE ==
[~2024-03-08 08:13] MED LIST changes: -CLINDAMYCIN 900 MG in DEXTROSE 5% IN WATER 50 ML IVPB PRN; +LACTATED RINGERS 1,000 ML IV SCH
[2024-03-08 09:18] LABS: Glucose,Whole Blood 156 mg/dL (70-110)
[2024-03-08] MEDS ORDERED: IOPAMIDOL M200 10 ML VIAL ONE (09:39)
[2024-03-08] MEDS ORDERED: DEXAMETHASONE SOD PHOSPHATE 10 MG/ML 1 ML VIAL ONE (09:39)
--- NOTE | 2024-03-08 10:02 | P.PCN ---
Date of Procedure: 03/08/24 Surgeon: Tori Florentino Pathology: none sent Condition: stable Disposition: PACU Description of Procedure: PREOPERATIVE DIAGNOSIS: Lumbar radiculopathy, postlaminectomy pain syndrome POSTOPERATIVE DIAGNOSIS: Lumbar radiculopathy , postoperatively pain syndrome PROCEDURE 1. Transforaminal epidural steroid injection under fluoroscopic guidance at the L3 4 level bilaterally 2. Lumbar epidurogram. SURGEON: Tori Florentino MD ANESTHESIA: Local only with 1% lidocaine EBL: Minimal PROCEDURE INDICATION: The patient with low back pain and radiculopathy symptoms unresponsive to conservative treatment. The patient's son states that having the procedure done at the L3-4 level helped his father more than when it is done at the L4 5 level. PROCEDURE DESCRIPTION / TECHNIQUE: The patient was seen and identified in the preoperative area. Risks, benefits, complications, and alternatives were discussed with the patient. The patient agreed to proceed with the procedure and signed the consent. IV was started, and vital signs were stable. Patient was taken to the OR and time out was completed. The patient was placed in the prone position on procedure table and a pillow was placed under the abdomen to reduce lumbar lordosis. The lumbosacral area was prepped and draped in the usual sterile fashion. Critical pause was taken. Vital signs were closely monitored during the procedure. Conscious sedation was used during the procedure to decrease patients anxiety. The vertebral body of the lumbar vertebra L3 was squared off by tilting the C-arm cephalad then the C-arm was tilted to the oblique position and the target point was at the 6 o'clock position of the pedicle of then skin and deeper tissues were localized with 1% lidocaine. Subsequently, a 22-gauge 3.5- inch spinal needle was advanced under a tunneled view fluoroscopic guidance just underneath the chin of the Marc dog at the . Under lateral fluoroscopy, the needle was then advanced to the middle of the upper one third of the foramen between( L3-L4). After negative aspiration of CSF and blood and with no paresthesias, 1 mL of omnipaque contrast dye was injected excellent epidurogram and outlining of the L3 nerve root was identified. Subsequently, 2 mL of block solution containing 7.5 mg of Decadron and Lidocaine 1% PF was injected. the procedure was repeated on the opposite side in the same manner.Needle was removed intact . At the end of the procedure, skin was cleansed, and bandages were applied. COMPLICATIONS: None DISPOSITION / PLANS: The patient was placed in a supine position and transferred to the recovery area in a stable condition for observation. There was no evidence of lower extremity motor or sensory deficit after the procedure. Leticia bourgeois was discharged from the recovery room after meeting discharge criteria. Home discharge instructions were given to the patient by the staff.
[2024-03-08 10:11] VITALS: PULSE 48; RESP 18
--- NOTE | 2024-03-08 10:12 | FL ---
Intraoperative/procedural fluoroscopic services were provided for pain management. Total fluoroscopy time is 39 seconds with a total of 6 submitted images to PACS. Total DAP [id number] mGym2. Please see t he operative note for further details. [facility], , 03/08/2024 10:09 AM
[2024-03-08 10:34] VITALS: BP 179/88
== END 2024-03-08 10:43 ==
LOC: ORPAIN 08:13
PROVIDERS: ATTEND Anesthesiology
DX: M54.16 Radiculopathy, lumbar region (principal); M96.1 Postlaminectomy syndrome, not elsewhere classified; E11.9 Type 2 diabetes mellitus without complications